=== PATIENT | female | born 1940 | race Native Hawaiian/Other Pacific Islander ===

== ENCOUNTER 2017-11-29 11:36 | Inpatient (IN) | payer MEDICARE ==
[2017-11-29 12:27] VITALS: O2SAT 98
--- NOTE | 2017-11-29 12:50 | ED PDOC ---
HPI: Psych/Substance Abuse Time Seen by Provider: 11/29/17 12:15 Chief Complaint (Nursing): Psychiatric Evaluation Chief Complaint (Provider): Psychiatric Evaluation ED Caveat: Dementia History Per: Patient, Family History/Exam Limitations: clinical condition Onset/Duration Of Symptoms: Gradual (x1 month) Current Symptoms Are (Timing): Still Present Additional Complaint(s): 77 year old female with medical history of dementia, presents to the emergency department with family for a psychiatric evaluation after patient has been experiencing visual hallucinations for 1 month. Daughter (POA) reports that patient is also experiencing difficulty sleeping, worsening memory loss and confusion. Per patient, she denies any complaints and states that she is "feeling good and happy". Family denies any fever, chills, nausea, vomiting, diarrhea, chest pain, bodily injuries, falls, suicidal or homicidal ideation. PMD: none provided Past Medical History Reviewed: Historical Data, Nursing Documentation, Vital Signs Vital Signs: Last Vital Signs Temp 98.3 F 11/29/17 12:24 Pulse 86 11/29/17 12:24 Resp 20 11/29/17 12:24 BP 162/74 H 11/29/17 12:24 Pulse Ox 98 11/29/17 12:24 - Medical History PMH: Dementia - Surgical History Other surgeries: hysterectomy - Family History Family History: States: Unknown Family Hx - Social History Current smoker - smoking cessation education provided: No Ex-Smoker (has not smoked in the last 12 months): No Alcohol: None Drugs: Denies - Home Medications Home Medications: Ambulatory Orders Medication Instructions Recorded Alprazolam [Xanax] 0.25 mg PO DAILY PRN 11/29/17 Amlodipine Besylate/Benazepril 1 cap PO DAILY 11/29/17 [Lotrel 5-10 mg Capsule] Calcium Carbonate [Caltrate] 1 tab PO DAILY 11/29/17 Cholecalciferol (Vitamin D3) 1 tab PO DAILY 11/29/17 [Vitamin D-400] Donepezil HCl [Aricept] 5 mg PO DAILY 11/29/17 Folic Acid/Multivit-Min/Lutein 1 tab PO DAILY 11/29/17 [Multi-Vitamin Gummies] Memantine [Namenda] 5 mg PO Q12 11/29/17 Nitrofurantoin Macrocrystals 100 mg PO Q12 11/29/17 [Macrobid] Simvastatin [Zocor] 20 mg PO DAILY 11/29/17 metFORMIN [glucOPHAGE] 500 mg PO DAILY 11/29/17 - Allergies Allergies/Adverse Reactions: Allergies Allergy/AdvReac Type Severity Reaction Status Date / Time apple Allergy ITCHING Verified 11/29/17 21:44 peach Allergy ITCHING Verified 11/29/17 21:44 nut - unspecified AdvReac Mild PAIN Verified 11/29/17 21:44 Review of Systems ROS Statement: Except As Marked, All Systems Reviewed And Found Negative Constitutional: Negative for: Fever, Chills Cardiovascular: Negative for: Chest Pain Gastrointestinal: Negative for: Nausea, Vomiting, Diarrhea Musculoskeletal: Negative for: Other (injuries) Psych: Positive for: Other (visual hallucinations). Negative for: Suicidal ideation (or homicidal ideation) Physical Exam - Reviewed Nursing Documentation Reviewed: Yes Vital Signs Reviewed: Yes - Physical Exam Appears: Positive for: Non-toxic, No Acute Distress Head Exam: Positive for: ATRAUMATIC, NORMAL INSPECTION, NORMOCEPHALIC Skin: Positive for: Normal Color Eye Exam: Positive for: Normal appearance ENT: Positive for: Normal ENT Inspection Neck: Positive for: Normal Cardiovascular/Chest: Positive for: Regular Rate, Rhythm Respiratory: Positive for: Normal Breath Sounds. Negative for: Respiratory Distress Gastrointestinal/Abdominal: Positive for: Normal Exam, Soft. Negative for: Tenderness Extremity: Positive for: Normal ROM (upper/lower) Neurologic/Psych: Positive for: Alert, Oriented. Negative for: Motor/Sensory Deficits - Laboratory Results Result Diagrams: 11/29/17 13:10 11/29/17 13:10 Urine dip results: Negative for: Leukocyte Esterase, Nitrate - ECG ECG: Positive for: Interpreted By Me, Viewed By Me ECG Rhythm: Positive for: Normal QRS, Normal ST Segment, Sinus Rhythm, Nonspecific Changes Rate: 76 O2 Sat by Pulse Oximetry: 98 (RA) Pulse Ox Interpretation: Normal - Radiology X-Ray: Interpreted by Me, Viewed By Me X-Ray Interpretation: No Acute Disease Medical Decision Making Medical Decision Making: Initial Impression: Psychiatric evaluation Initial Plan: * CT head without contrast * EKG * Alcohol serum * Drug screen, urine * Urine dipstick * CBC Time: 1407 --CT head FINDINGS: HEMORRHAGE: No intracranial hemorrhage. BRAIN: No mass effect or edema. Mild atrophy. Mild chronic microvascular ischemic changes. VENTRICLES: Mildly prominent. No hydrocephalus. CALVARIUM: Unremarkable. PARANASAL SINUSES: Unremarkable as visualized. No significant inflammatory changes. MASTOID AIR CELLS: Unremarkable as visualized. No inflammatory changes. OTHER FINDINGS: None. IMPRESSION: No acute intracranial pathology. Time: 1544 --Patient evaluated by crisis. --Will be admitted to [facility] for dementia by Dr. Mejias. --Patient is medically stable for psychiatric admission. Scribe Attestation: Documented by Kate Edouard, acting as a scribe for Wilmer Orozco MD. Provider Scribe Attestation: All medical record entries made by the Scribe were at my direction and personally dictated by me. I have reviewed the chart and agree that the record accurately reflects my personal performance of the history, physical exam, medical decision making, and the department course for this patient. I have also personally directed, reviewed, and agree with the discharge instructions and disposition. Disposition - Clinical Impression Clinical Impression: Dementia - Patient ED Disposition Is Patient to be Admitted: Yes Doctor Will See Patient In The: Hospital Counseled Patient/Family Regarding: Studies Performed, Diagnosis - Disposition Disposition Time: 16:50 Condition: STABLE - Pt Status Changed To: Hospital Disposition Of: Inpatient - Admit Certification Admit to Inpatient:: After my assessment, the patient will require hospitalization for at least two midnights. This is because of the severity of symptoms shown, intensity of services needed, and/or the medical risk in this patient being treated as an outpatient. - POA Present On Arrival: None
[2017-11-29 13:26] LABS: BASO # 0.1 K/uL (0.0-0.2); EOS # 0.2 K/uL (0.0-0.7); EOS % 2.6 % (0.0-4.0); LYMPH # 2.1 K/uL (1.0-4.3); LYMPH % 32.4 % (20.0-40.0); MEAN CELL VOLUME 87.9 fl (81.0-99.0); MEAN CORPUSCULAR HGB CONC 31.9 g/dL (33.0-37.0); MEAN PLATELET VOLUME 7.9 fl (7.2-11.7); MONO # 0.5 K/uL (0.0-0.8); MONO % 7.3 % (0.0-10.0); NEUT # 3.7 K/uL (1.8-7.0); NEUT % 56.7 % (50.0-75.0); NRBC % 0.3 % (0.0-0.0); RBC 4.29 Mil/uL (3.80-5.20); RED CELL DISTRIBUTION WIDTH 14.2 % (11.5-14.5); WHITE BLOOD COUNT 6.6 K/uL (4.8-10.8)
[2017-11-29 13:32] LABS: BLOOD UREA NITROGEN 25 mg/dl (7-17); CALCIUM 9.2 mg/dL (8.4-10.2); GFR AFRICAN-AMERICAN > 60; GFR NON-AFRICAN AMERICAN > 60
--- NOTE | 2017-11-29 14:09 | CT ---
PROCEDURE: CT HEAD WITHOUT CONTRAST. HISTORY: AMS COMPARISON: None available. TECHNIQUE: Axial computed tomography images were obtained through the head/brain without intravenous contrast. Radiation dose: Total exam DLP = 694.8 mGy-cm. This CT exam was performed using one or more of the following dose reduction techniques: Automated exposure control, adjustment of the mA and/or kV according to patient size, and/or use of iterative reconstruction technique. FINDINGS: HEMORRHAGE: No intracranial hemorrhage. BRAIN: No mass effect or edema. Mild atrophy. Mild chronic microvascular ischemic changes. VENTRICLES: Mildly prominent. No hydrocephalus. CALVARIUM: Unremarkable. PARANASAL SINUSES: Unremarkable as visualized. No significant inflammatory changes. MASTOID AIR CELLS: Unremarkable as visualized. No inflammatory changes. OTHER FINDINGS: None. IMPRESSION: No acute intracranial pathology.
[2017-11-29 14:31] LABS: BARBITURATES, UR NEGATIVE (NEGATIVE); BENZODIAZEPINES, UR NEGATIVE (NEGATIVE); OPIATES, UR NEGATIVE (NEGATIVE); PHENCYCLIDINE, UR NEGATIVE (NEGATIVE)
--- NOTE | 2017-11-29 17:01 | RAD ---
HISTORY: medical clearance COMPARISON: No prior. FINDINGS: LUNGS: No active pulmonary disease. PLEURA: No significant pleural effusion identified, no pneumothorax apparent. CARDIOVASCULAR: No radiographic findings to suggest acute or significant cardiovascular disease. OSSEOUS STRUCTURES: No significant abnormalities. VISUALIZED UPPER ABDOMEN: Normal. OTHER FINDINGS: None. IMPRESSION: No active disease.
[2017-11-29] MEDS ORDERED: Magnesium Hydroxide Susp 30 ml UD PO PRN (18:46)
[2017-11-29] MEDS ORDERED: Alum-Mag Hydrox-Simethicone Susp (30 mL) PO PRN (18:46)
[2017-11-29] MEDS ORDERED: Insulin Lispro (humaLOG) 100 Units/ml Inj SC SCH (23:00)
[2017-11-29 23:13] LABS: SQUAMOUS EPITHIAL < 1 /hpf (0-5); URINE BACTERIA OCC (<OCC); URINE BILIRUBIN NEGATIVE (NEGATIVE); URINE BLOOD NEGATIVE (NEGATIVE); URINE CLARITY CLOUDY (Clear); URINE COLOR YELLOW (YELLOW); URINE GLUCOSE (UA) NEG (Normal); URINE LEUKOCYTE ESTERASE LARGE Leu/uL (Negative); URINE PROTEIN NEGATIVE (NEGATIVE); URINE UROBILINOGEN 0.2-1.0 mg/dL (0.2-1.0)
--- NOTE | 2017-11-29 23:37 | CP.PCM.PN ---
Subjective - Date & Time of Evaluation Date of Evaluation: 11/29/17 Time of Evaluation: 23:37 - Subjective Subjective: Urinalysis : +ve Nitrites moderate leukocyte esterase #. UTI - Urine c&s - Heydi Monson MD Objective - Vital Signs/Intake and Output Vital Signs (last 24 hours): Temp Pulse Resp BP Pulse Ox 98.6 F 78 18 170/80 H 98 11/29/17 19:28 11/29/17 19:28 11/29/17 18:45 11/29/17 19:28 11/29/17 17:59 - Medications Medications: Current Medications Acetaminophen (Tylenol 325mg Tab) 650 mg PO Q4 PRN PRN Reason: Pain, moderate (4-7) Al Hydrox/Mg Hydrox/Simethicone (Maalox Plus 30 Ml) 30 ml PO Q4 PRN PRN Reason: Dyspepsia Amlodipine Besylate (Norvasc) 10 mg PO DAILY [facility] Atorvastatin Calcium (Lipitor) 10 mg PO HS [facility] Calcium Carbonate (Oscal) 500 mg PO DAILY [facility] Donepezil HCl (Aricept) 5 mg PO DAILY [facility] Insulin Human Lispro (Humalog) 0 units SC ACCU-CHECK [facility] PRN Reason: Protocol Lorazepam (Ativan) 0.5 mg PO Q6 PRN PRN Reason: Anixety/Agitation Stop: 12/13/17 18:47 Lorazepam (Ativan) 0.5 mg PO HS PRN PRN Reason: Insomnia Last Admin: 11/29/17 22:39 Dose: 0.5 mg Magnesium Hydroxide (Milk Of Magnesia) 30 ml PO HS PRN PRN Reason: Constipation Memantine (Namenda) 5 mg PO Q12 [facility] Metformin HCl (Glucophage) 500 mg PO DAILY [facility] Multivitamins/Minerals (Therapeutic-M Tab) 1 tab PO DAILY [facility] Pneumococcal Polyvalent Vaccine (Pneumovax 23 Vaccine) 0.5 ml IM .ONCE ONE Stop: 11/30/17 10:01 Vitamin D (Vitamin D 400 Intl Units Tab) 400 intlu PO DAILY [facility] - Labs Labs: 11/29/17 13:10 11/29/17 13:10
--- NOTE | 2017-11-30 04:01 | PCM.BM ---
<Suzanne Zuniga - Last Filed: 11/30/17 03:59> Treatment Plan Problems - Problems identified on initial assessmt delusions Date Initiated: 11/29/17 Time Initiated: 21:00 Assessment reference: NA Status: Active altered sleep patterns Date Initiated: 11/29/17 Time Initiated: 21:00 Assessment reference: NA Status: Active Treatment assets and liabiliti Patient Assests: cooperative, ADL independent, good support system, negotiates basic needs Patient Liabilities: live alone, medical problems, imparied memory - Milieu Protocol Maintain good personal hygiene: daily Encourage regular showers, daily Remind patient to perform daily oral care, daily Assist patient to perform ADL's Conduct patient checks and document Observation sheet: Q15 minutes Maintain personal safety: every shift Educate patient to report safety concerns to staff, every shift Monitor environment for contraband/sharps Medication safety: Monitor for expected outcome, potential side effects: every shift, Assess barriers to learning: every shift, Assess readiness for medication education: every shift <Yolande Mejias - Last Filed: 11/30/17 14:10> - Diagnosis (1) Dementia with behavioral disturbance Status: Acute Interventions: Medication management, Individual and group therapy, Psychoeducation 11/30/17 11:11 (2) Unspecified psychosis Status: Acute Interventions: Medication management, Individual and group therapy, Psychoeducation 11/30/17 14:10 <Alina Blue - Last Filed: 12/02/17 08:30> Family Contact Family contact: Patient agrees to contact, Family has been contacted by patient , Telephone contact initiated by staff, Family contacted unit to give information Family contact name: Shani Clement - sister Family contacted how many times per week?: 2 Family contact comment: [phone] - Goals for Treatment Patient goals for treatment: Pt to be encouraged to attend activity and clinical groups 3-5x per week to decrease symptoms of paranoia, delusions and employ reality testing. Pt to be encouraged to participate in group milieu to develop coping skills to reduce psychiatric hospitalizations and further decompensation. Coordinate discharge resources needs by providing referral for psychiatric treatment follow up in the community. Discharge/Continuing Care - Education Needs Education Needs: Family Medication, Family Diagnosis/Disease Process, Family Placement options, Family Community resources, Family Activities of Daily Living , Family Personal Hygiene/Grooming, Family Aftercare Safety Plan - Discharge Discharge Criteria: Tolerates medication w/o severe side effects, Free of paranoid thoughts, Normal sleep pattern, Reduction of target symptoms Discharge to:: [facility] - Additional Comments 12/02/17 08:26 Pt seen in team meeting on 11/30/2017. Reason for admission reviewed and discussed. Pt reported being in the hospital due to "high blood pressure." Pt reported "memory some problems." Pt reported she lives with her mother and brother. Pt reported that her brother is going tot he be the president of the [employer] next year. Pt is alert and oriented to person only. Pt is disoriented and confused. Pt's medical and social issues reviewed. Pt's medications reviewed. Tx plan reviewed. SW to continue to follow case. - Treatment Team Participation Discussed with Family/SO: Yes (Via telephone) Was Patient/Family/SO present at Treatment Team Meeting: Yes
[2017-11-30 06:40] LABS: T4 7.24 ug/dl (5.5-11.0)
[2017-11-30 06:57] LABS: FERRITIN 90.5 ng/Ml (11.1-264.0)
[2017-11-30] MEDS: Cholecalciferol 400 Intl Units Tab PO SCH (08:35)
[2017-11-30] MEDS: Multivitamin With Minerals Tab PO SCH (08:36)
[2017-11-30] MEDS: Insulin Lispro (humaLOG) 100 Units/ml Inj SC SCH ×4 (08:39→21:20)
[2017-11-30] MEDS ORDERED: Pneumococcal 23-Valent Vaccine IM ONE (10:00)
--- NOTE | 2017-11-30 11:14 | PCM.PSYCH ---
Initial Psychiatric Evaluation - Initial Psychiatric Evaluation Type of Admission: Voluntary Legal Status: DPOA Chief Complaint (in patient's own words): "I'm okay." Patient's Reaction to Hospitalization: HPI: 77 yo female w/ h/o dementia BIB sister for worsening dementia, wandering around (recently was found by friends waiting at the bus stop w/ 3 purses), standing in front of a mirror for hours talking to herself, having full conversations with people that are or not present in the room (possible AH vs VH), paranoia that her brother in law is stealing her belongings despite no one in the family having keys to her home and hoarding objects. Patient denies acute psychiatric complaints, denies depression/anxiety/SI/HI/AH/VH, but does believe that she lives w/ her mother who is no longer alive and believes she works giving out [employer]. Oriented x self and 2018 PPHx: Alzheimer's Dementia on Aricept and Namenda SHx: No homemaker, denies drugs/etoh/cig. Lives alone. Current Medications: Active Medications Generic Name Dose Route Start Last Admin Trade Name Freq PRN Reason Stop Dose Admin Acetaminophen 650 mg 11/29/17 18:46 Tylenol 325mg Tab PO Q4 PRN Pain, moderate (4-7) Al Hydrox/Mg Hydrox/Simethicone 30 ml 11/29/17 18:46 Maalox Plus 30 Ml PO Q4 PRN Dyspepsia Amlodipine Besylate 10 mg 11/30/17 09:00 11/30/17 08:36 Norvasc PO 10 mg DAILY [facility] Administration Atorvastatin Calcium 10 mg 11/30/17 22:00 Lipitor PO HS [facility] Calcium Carbonate 500 mg 11/30/17 09:00 11/30/17 08:34 Oscal PO 500 mg DAILY [facility] Administration Ciprofloxacin 500 mg 11/29/17 23:45 11/30/17 08:35 Cipro PO 500 mg Q12 [facility] Administration Protocol Donepezil HCl 10 mg 12/01/17 22:00 Aricept PO HS [facility] Insulin Human Lispro 0 units 11/29/17 23:00 11/30/17 08:39 Humalog SC 1 u ACCU-CHECK [facility] Administration Protocol Lorazepam 0.5 mg 11/29/17 18:46 Ativan PO 12/13/17 18:47 Q6 PRN Anixety/Agitation Lorazepam 0.5 mg 11/29/17 22:20 11/29/17 22:39 Ativan PO 0.5 mg HS PRN Administration Insomnia Magnesium Hydroxide 30 ml 11/29/17 18:46 Milk Of Magnesia PO HS PRN Constipation Memantine 5 mg 11/29/17 21:00 11/30/17 08:35 Namenda PO 5 mg Q12 [facility] Administration Metformin HCl 500 mg 11/30/17 09:00 11/30/17 08:35 Glucophage PO 500 mg DAILY [facility] Administration Multivitamins/Minerals 1 tab 11/30/17 09:00 11/30/17 08:36 Therapeutic-M Tab PO 1 tab DAILY [facility] Administration Vitamin D 400 intlu 11/30/17 09:00 11/30/17 08:35 Vitamin D 400 Intl Units Tab PO 400 intlu DAILY [facility] Administration Past Psychiatric History - Past Psychiatric History Previous Treatment History: None Pertinent Medical Hx (Current Medical&Sleep Prob, Allergies): Allergies Allergy/AdvReac Type Severity Reaction Status Date / Time apple Allergy ITCHING Verified 11/29/17 21:44 peach Allergy ITCHING Verified 11/29/17 21:44 nut - unspecified AdvReac Mild PAIN Verified 11/29/17 21:44 Alprazolam [Xanax] 0.25 mg PO DAILY PRN 11/29/17 Amlodipine Besylate/Benazepril [Lotrel 5-10 mg Capsule] 1 cap PO DAILY 11/29/17 Calcium Carbonate [Caltrate] 1 tab PO DAILY 11/29/17 Cholecalciferol (Vitamin D3) [Vitamin D-400] 1 tab PO DAILY 11/29/17 Donepezil HCl [Aricept] 5 mg PO DAILY 11/29/17 Folic Acid/Multivit-Min/Lutein [Multi-Vitamin Gummies] 1 tab PO DAILY 11/29/17 Memantine [Namenda] 5 mg PO Q12 11/29/17 Nitrofurantoin Macrocrystals [Macrobid] 100 mg PO Q12 11/29/17 Simvastatin [Zocor] 20 mg PO DAILY 11/29/17 metFORMIN [glucOPHAGE] 500 mg PO DAILY 11/29/17 Review of Systems - Neurological Neurological: Memory Loss - Psychiatric Psychiatric: Abnormal Sleep Pattern, Difficulty Concentrating, Hallucinations, Irritability, Memory Loss, Mood Swings, Paranoia Mental Status Examination - Personal Presentation Personal Presentation: Looks stated age - Affect Affect: Broad - Motor Activity Motor Activity: Calm - Reliability in Providing Information Reliability in Providing Information: Poor, due to cognitve impairment - Speech Speech: Tangential, Coherent - Mood Mood: Neutral - Formal Thought Process Formal Thought Process: Delusions, Paranoia, Loosening of associations - Hallucinations/Delusions Additional comments: Patient denies AH/VH, but it unclear if she responds to internal stimuli - Obsessions/Compulsions Obsessions: No Compulsions: No - Cognitive Functions Orientation: Person Sensorium: Alert Attention/Concentration: Easily distracted Estimate of Intelligence: Average Judgement: Imparied, as evidence by: Poor judgement, Imparied, as evidence by: Lack of insight into illness Memory: Recent impaired, as evidence by: Inability to recall events of the day, Recent imparied as evidence by:Inability to complete 3/3 object recall, Remote impaired as evidenced by: Inability to recall sig life events, Remote impaired as evidenced by: Inability to recall historical events - Risk Risk: Diminished functioning - Strength & Assets Inventory Strength & Assets Inventory: Family support, Cooperative - Limitations Limitations: Living alone, Decreased memory, recent DSM 5 DX - DSM 5 DSM 5 Diagnosis: Dementia with behavioral disturbance, Psychosis NOS - Recommended/Plan of Treatment Treatment Recommendations and Plan of Treatment: Dementia with behavioral disturbance, Psychosis NOS -Admit to geriatric psychiatry unit -Individual and group therapy -Continue Aricept and Namenda -Start Risperdal 0.25 mg PO HS -Case discussed w/ POA -Medicine consult -Disposition planning Projected ELOS: 5-10 days Discharge Plan and Discharge Criteria: Discharge when patient is psychiatrically stable - Smoking Cessation Smoking Cessation Initiated: No Reason for not providing: Not indicated
--- NOTE | 2017-11-30 12:28 | CARD ---
APPROVED REPORT EKG Measurement Heart [id number] [id number] [id number] <Conclusion> Normal sinus rhythm Inferior infarct, age undetermined Cannot rule out Anterior infarct, age undetermined Abnormal ECG
[2017-11-30 17:26] LABS: FOLATE 15.1 ng/mL
--- NOTE | 2017-11-30 17:46 | CP.PCM.CON ---
History of Present Illness - History of Present Illness History of Present Illness: CC: dementia This is a 77 year old female with a past medical history of dementia, hypercholesterolemia, type 2 DM (on Metformin at home), who presented to the ED with worsening visual hallucination, memory loss, and confusion for one month. She was subsequently admitted to the inpatient [facility] for dementia. Patient to me denies any past medical history, although she is a poor historian. She states that she feels well and has no complaints. Was dx with UTI yesterday by the overnight hospitalist. Patient denies chest pain, shortness of breath, fevers, chills, nausea, vomiting, diarrhea, headache. All of the patient's questions were answered at the bedside. Review of Systems - Review of Systems Review of Systems: A 12 point review of systems was conducted and found to be negative other than what was mentioned in the HPI. Past Patient History - Infectious Disease Hx of Infectious Diseases: None - Past Medical History & Family History Past Medical History?: Yes Past Family History: Reviewed and not pertinent - Past Social History Smoking Status: Never Smoked Alcohol: None Drugs: Denies - CARDIAC Hx Cardiac Disorders: No - PULMONARY Hx Tuberculosis: No - NEUROLOGICAL Hx Dementia: Yes - ENDOCRINE/METABOLIC Hx Diabetes Mellitus Type 2: Yes - HEMATOLOGICAL/ONCOLOGICAL Hx Cancer: No Hx Human Immunodeficiency Virus (HIV): No - MUSCULOSKELETAL/RHEUMATOLOGICAL Hx Falls: No - GENITOURINARY/GYNECOLOGICAL Hx Sexually Transmitted Disorders: No - PSYCHIATRIC Hx Substance Use: No - SURGICAL HISTORY Hx Cholecystectomy: Yes Hx Hysterectomy: Yes - ANESTHESIA Hx Anesthesia: Yes Hx Anesthesia Reactions: No Hx Malignant Hyperthermia: No Meds Allergies/Adverse Reactions: Allergies Allergy/AdvReac Type Severity Reaction Status Date / Time apple Allergy ITCHING Verified 11/29/17 21:44 peach Allergy ITCHING Verified 11/29/17 21:44 nut - unspecified AdvReac Mild PAIN Verified 11/29/17 21:44 - Medications Medications: Current Medications Acetaminophen (Tylenol 325mg Tab) 650 mg PO Q4 PRN PRN Reason: Pain, moderate (4-7) Al Hydrox/Mg Hydrox/Simethicone (Maalox Plus 30 Ml) 30 ml PO Q4 PRN PRN Reason: Dyspepsia Amlodipine Besylate (Norvasc) 10 mg PO DAILY [facility] Last Admin: 11/30/17 08:36 Dose: 10 mg Atorvastatin Calcium (Lipitor) 10 mg PO HS [facility] Calcium Carbonate (Oscal) 500 mg PO DAILY [facility] Last Admin: 11/30/17 08:34 Dose: 500 mg Ciprofloxacin (Cipro) 500 mg PO Q12 [facility] PRN Reason: Protocol Last Admin: 11/30/17 08:35 Dose: 500 mg Donepezil HCl (Aricept) 10 mg PO HS [facility] Insulin Human Lispro (Humalog) 0 units SC ACCU-CHECK [facility] PRN Reason: Protocol Last Admin: 11/30/17 16:54 Dose: Not Given Lorazepam (Ativan) 0.5 mg PO Q6 PRN PRN Reason: Anixety/Agitation Stop: 12/13/17 18:47 Lorazepam (Ativan) 0.5 mg PO HS PRN PRN Reason: Insomnia Last Admin: 11/29/17 22:39 Dose: 0.5 mg Magnesium Hydroxide (Milk Of Magnesia) 30 ml PO HS PRN PRN Reason: Constipation Memantine (Namenda) 5 mg PO Q12 [facility] Last Admin: 11/30/17 08:35 Dose: 5 mg Metformin HCl (Glucophage) 500 mg PO DAILY [facility] Last Admin: 11/30/17 08:35 Dose: 500 mg Multivitamins/Minerals (Therapeutic-M Tab) 1 tab PO DAILY [facility] Last Admin: 11/30/17 08:36 Dose: 1 tab Risperidone (Risperdal Tab) 0.25 mg PO [facility] Vitamin D (Vitamin D 400 Intl Units Tab) 400 intlu PO DAILY [facility] Last Admin: 11/30/17 08:35 Dose: 400 intlu Physical Exam - Additional Findings Additional findings: Physical exam: Constitutional- cooperative, awake, alert Head- NCAT, PERRL Eye- PERRL, EOMI ENT- normal exam, MMM. Neck- normal inspection, supple, no JVD Respiratory- CTAB, no wheezes rales rhonchi Cardiovascular- RRR, +S1, +S2 no MRG GI/Abdominal- normal bowel sounds, soft, no mass, no hsm Skin- warm, dry Extremities Exam- normal capillary refill, normal inspection Neurological Exam- alert, awake, oriented Psych- normal mood, normal affect Results - Vital Signs Recent Vital Signs: Last Vital Signs Temp 97.9 F 11/30/17 15:51 Pulse 85 11/30/17 15:51 Resp 18 11/30/17 15:51 BP 140/86 11/30/17 15:51 Pulse Ox 98 11/29/17 17:59 - Labs Result Diagrams: 11/29/17 13:10 11/29/17 13:10 Labs: Laboratory Results - last 24 hr 11/29/17 11/29/17 11/30/17 20:55 23:01 05:30 POC Glucose (mg/dL) 182 H Ferritin 90.5 Triglycerides 99 Cholesterol 183 LDL Cholesterol Direct 85 HDL Cholesterol 48 Vitamin B12 355 Folate 15.1 Free T4 Thyroxine (T4) 7.24 TSH 3rd Generation 2.54 Urine Color Yellow Urine Clarity Cloudy Urine pH 6.0 Ur Specific Berger 1.014 Urine Protein Negative Urine Glucose (UA) Neg Urine Ketones Negative Urine Blood Negative Urine Nitrate Positive H Urine Bilirubin Negative Urine Urobilinogen 0.2-1.0 Ur Leukocyte Esterase Large Urine RBC (Auto) 19 H Urine Microscopic WBC 227 H Ur Squamous Epith Cells < 1 Urine Bacteria Occ H 11/30/17 11/30/17 11/30/17 05:30 05:39 14:12 POC Glucose (mg/dL) 72 130 H Ferritin Triglycerides Cholesterol LDL Cholesterol Direct HDL Cholesterol Vitamin B12 Folate Free T4 1.02 Thyroxine (T4) TSH 3rd Generation Urine Color Urine Clarity Urine pH Ur Specific Berger Urine Protein Urine Glucose (UA) Urine Ketones Urine Blood Urine Nitrate Urine Bilirubin Urine Urobilinogen Ur Leukocyte Esterase Urine RBC (Auto) Urine Microscopic WBC Ur Squamous Epith Cells Urine Bacteria 11/30/17 15:16 POC Glucose (mg/dL) 113 H Ferritin Triglycerides Cholesterol LDL Cholesterol Direct HDL Cholesterol Vitamin B12 Folate Free T4 Thyroxine (T4) TSH 3rd Generation Urine Color Urine Clarity Urine pH Ur Specific Berger Urine Protein Urine Glucose (UA) Urine Ketones Urine Blood Urine Nitrate Urine Bilirubin Urine Urobilinogen Ur Leukocyte Esterase Urine RBC (Auto) Urine Microscopic WBC Ur Squamous Epith Cells Urine Bacteria Assessment & Plan - Assessment and Plan (Free Text) Plan: ASSESSMENT/PLAN 77 yo female admitted for visual hallucinations 1) UTI - Acute - continue Cipro 500 mg po q 12 hours - Urine CX pending - afebrile, no WBC at present 2) Type 2 DM - Continue Lispro sliding scale - HGA1C pending - Metformin 500 mg po daily 3) Hypercholesterolemia - controlled - continue statin 4) Essential hypertension - Continue Norvasc 10 mg po daily - controlled 5) Dementia, visual hallucinations - Continue Namenda - continue Aricept - Continue Risperidone - Further management as per psychiatry
[2017-12-01] MEDS: Insulin Lispro (humaLOG) 100 Units/ml Inj SC SCH ×4 (08:38→21:00)
[2017-12-01] MEDS: Multivitamin With Minerals Tab PO SCH (08:39)
--- NOTE | 2017-12-01 08:58 | PCM.PYCHPN ---
Psychiatric Progress Note - Psychiatric Progress Note Patient seen today, length of contact: Patient evaluated, case discussed with team, chart reviewed Patient Chief Complaint: "I'm okay." Problems Identified/Issues Discussed: Patient continues to be confused and disoriented due to chronic dementia. She has been observed talking to herself by staff. She denies adverse effects to medications. No periods of agitation or aggression. Medication Change: Yes (Increase Aricept to 10 mg PO HS) Medical Record Reviewed: Yes Consults ordered or reviewed: Medicine consult Mental Status Examination - Cognitive Function Orientation: Person Memory: Impaired Attention: Poor Concentration: Poor Association: Loose Fund of Knowledge: Poor Decription of patient's judgement and insights: Poor I/J - Mood Mood: Neutral - Affect Affect: Broad - Formal Thought Process Formal Thought Process: Hallucinations (Possible AH or VH; patient observed talking to herself by staff; denies overt AH/VH), Paranoia, Loosening of associations - Suicidal Ideation Suicidal Ideation: No - Homicidal Ideation Homicidal Ideation: No Goal/Treatment Plan - Goal/Treatment Plan Need for Continued Stay: Remain at risks for inpatient hospitalization, Discharge may exacerbated symptoms, Severe functional impairment Progress Toward Problem(s) and Goals/Treatment Plan: Dementia with behavioral disturbance, Psychosis NOS -Individual and group therapy -Increase Aricept to 10 mg PO HS -Continue Namenda 5 mg PO BID -Continue Risperdal 0.25 mg PO HS -Case discussed w/ POA -Medicine consult -Disposition planning Estimated Date of D/C: 12/03/17
[2017-12-01] MEDS: Cholecalciferol 400 Intl Units Tab PO SCH (18:26)
[2017-12-02] MEDS: Insulin Lispro (humaLOG) 100 Units/ml Inj SC SCH ×4 (08:27→22:00)
[2017-12-02] MEDS: Multivitamin With Minerals Tab PO SCH (08:28)
[2017-12-02] MEDS: Cholecalciferol 400 Intl Units Tab PO SCH (08:28)
--- NOTE | 2017-12-02 10:00 | PCM.PYCHPN ---
Psychiatric Progress Note - Psychiatric Progress Note Patient seen today, length of contact: Patient evaluated, case discussed with team, chart reviewed Patient Chief Complaint: "I'm okay." Problems Identified/Issues Discussed: Patient continues to be confused and disoriented due to chronic dementia. She is calmer and seems less internally preoccupied. She denies adverse effects to medications. No periods of agitation or aggression. Medication Change: No Medical Record Reviewed: Yes Consults ordered or reviewed: Medicine consult Mental Status Examination - Cognitive Function Orientation: Person Memory: Impaired Attention: Poor Concentration: Poor Association: Loose Fund of Knowledge: Poor Decription of patient's judgement and insights: Poor I/J - Mood Mood: Neutral - Affect Affect: Broad - Formal Thought Process Formal Thought Process: Loosening of associations Psychotic Thoughts and Behaviors: Denies AH/VH/paranoia - Suicidal Ideation Suicidal Ideation: No - Homicidal Ideation Homicidal Ideation: No Goal/Treatment Plan - Goal/Treatment Plan Need for Continued Stay: Discharge may exacerbated symptoms, Severe functional impairment Progress Toward Problem(s) and Goals/Treatment Plan: Dementia with behavioral disturbance, Psychosis NOS -Individual and group therapy -Continue Aricept 10 mg PO HS -Continue Namenda 5 mg PO BID -Continue Risperdal 0.25 mg PO HS -Case discussed w/ POA -Medicine consult -Disposition planning Estimated Date of D/C: 12/06/17
[2017-12-03] MEDS: Insulin Lispro (humaLOG) 100 Units/ml Inj SC SCH ×4 (08:32→22:15)
[2017-12-03] MEDS: Multivitamin With Minerals Tab PO SCH (08:39)
[2017-12-03] MEDS: Cholecalciferol 400 Intl Units Tab PO SCH (08:40)
--- NOTE | 2017-12-03 09:29 | PCM.PYCHPN ---
Psychiatric Progress Note - Psychiatric Progress Note Patient seen today, length of contact: Patient evaluated, case discussed with team, chart reviewed Patient Chief Complaint: "I'm okay." Problems Identified/Issues Discussed: Patient continues to be confused and disoriented due to chronic dementia. She is calm, cooperative, w/o any behavioral disturbances. She is at her baseline of functioning. She denies adverse effects to medications. No periods of agitation or aggression. No acute AH/VH/paranoia. Medication Change: No Medical Record Reviewed: Yes Consults ordered or reviewed: Medicine consult Mental Status Examination - Cognitive Function Orientation: Person Memory: Impaired Attention: Poor Concentration: Poor Association: Loose Fund of Knowledge: Poor Decription of patient's judgement and insights: Poor I/J - Mood Mood: Neutral - Affect Affect: Broad - Formal Thought Process Formal Thought Process: Loosening of associations Psychotic Thoughts and Behaviors: Denies AH/VH/paranoia - Suicidal Ideation Suicidal Ideation: No - Homicidal Ideation Homicidal Ideation: No Goal/Treatment Plan - Goal/Treatment Plan Progress Toward Problem(s) and Goals/Treatment Plan: Dementia with behavioral disturbance, Psychosis NOS; patient is psychiatrically stable for referral to assisted living -Individual and group therapy -Continue Aricept 10 mg PO HS -Continue Namenda 5 mg PO BID -Continue Risperdal 0.25 mg PO HS -Case discussed w/ POA -Medicine consult -Disposition planning Estimated Date of D/C: 12/06/17 - Smoking Cessation Smoking Cessation Initiated: No Reason for not providing: Not indicated
--- NOTE | 2017-12-03 11:31 | CP.PCM.CON ---
History of Present Illness - History of Present Illness History of Present Illness: Pt is a 77 year old female admitted to the gerospych unit and referred to the board writer for evaluation. On the DRS, pt scored an overalls score of 103 (125+ = intact cognitive skills). Pt scored within normal limits on Attent ion tasks. Pt's Initiation, Construction, Memory, and Conceptualization skills all fell in the Deficient Range. Pt acknowledged memory deficits on interview though was defensive on interview with confabulation also evident. Overal 103 Attention 32 Construction 3 Conceptualization 29 Initiation 26 Memory 13 Supervision indicated for more complex tasks and monitoring to determine needs. A day program would be helpful at this time and homemaker services Thank you for this referral, Dr. Granados Past Patient History - Infectious Disease Hx of Infectious Diseases: None - Past Medical History & Family History Past Medical History?: Yes Past Family History: Reviewed and not pertinent - Past Social History Alcohol: None Drugs: Denies - CARDIAC Hx Cardiac Disorders: No - PULMONARY Hx Tuberculosis: No - NEUROLOGICAL Hx Dementia: Yes - ENDOCRINE/METABOLIC Hx Diabetes Mellitus Type 2: Yes - HEMATOLOGICAL/ONCOLOGICAL Hx Cancer: No Hx Human Immunodeficiency Virus (HIV): No - MUSCULOSKELETAL/RHEUMATOLOGICAL Hx Falls: No - GENITOURINARY/GYNECOLOGICAL Hx Sexually Transmitted Disorders: No - PSYCHIATRIC Hx Substance Use: No - SURGICAL HISTORY Hx Cholecystectomy: Yes Hx Hysterectomy: Yes - ANESTHESIA Hx Anesthesia: Yes Hx Anesthesia Reactions: No Hx Malignant Hyperthermia: No Meds Allergies/Adverse Reactions: Allergies Allergy/AdvReac Type Severity Reaction Status Date / Time apple Allergy ITCHING Verified 11/29/17 21:44 peach Allergy ITCHING Verified 11/29/17 21:44 nut - unspecified AdvReac Mild PAIN Verified 11/29/17 21:44 - Medications Medications: Current Medications Acetaminophen (Tylenol 325mg Tab) 650 mg PO Q4 PRN PRN Reason: Pain, moderate (4-7) Last Admin: 12/02/17 11:16 Dose: 650 mg Al Hydrox/Mg Hydrox/Simethicone (Maalox Plus 30 Ml) 30 ml PO Q4 PRN PRN Reason: Dyspepsia Amlodipine Besylate (Norvasc) 10 mg PO DAILY [facility] Last Admin: 12/03/17 08:37 Dose: 10 mg Atorvastatin Calcium (Lipitor) 10 mg PO HS [facility] Last Admin: 12/02/17 21:04 Dose: 10 mg Calcium Carbonate (Oscal) 500 mg PO DAILY [facility] Last Admin: 12/03/17 08:38 Dose: 500 mg Ciprofloxacin (Cipro) 500 mg PO Q12 [facility] PRN Reason: Protocol Last Admin: 12/03/17 08:36 Dose: 500 mg Donepezil HCl (Aricept) 10 mg PO HS [facility] Last Admin: 12/02/17 21:04 Dose: 10 mg Insulin Human Lispro (Humalog) 0 units SC ACCU-CHECK [facility] PRN Reason: Protocol Last Admin: 12/03/17 08:32 Dose: Not Given Lorazepam (Ativan) 0.5 mg PO Q6 PRN PRN Reason: Anixety/Agitation Stop: 12/13/17 18:47 Lorazepam (Ativan) 0.5 mg PO HS PRN PRN Reason: Insomnia Last Admin: 11/29/17 22:39 Dose: 0.5 mg Magnesium Hydroxide (Milk Of Magnesia) 30 ml PO HS PRN PRN Reason: Constipation Memantine (Namenda) 5 mg PO BID [facility] Last Admin: 12/03/17 08:37 Dose: 5 mg Metformin HCl (Glucophage) 500 mg PO DAILY [facility] Last Admin: 12/03/17 08:37 Dose: 500 mg Multivitamins/Minerals (Therapeutic-M Tab) 1 tab PO DAILY [facility] Last Admin: 12/03/17 08:39 Dose: 1 tab Risperidone (Risperdal Tab) 0.25 mg PO HS [facility] Last Admin: 12/02/17 21:04 Dose: 0.25 mg Vitamin D (Vitamin D 400 Intl Units Tab) 400 intlu PO DAILY [facility] Last Admin: 12/03/17 08:40 Dose: 400 intlu Results - Vital Signs Recent Vital Signs: Last Vital Signs Temp 97 F L 12/03/17 06:00 Pulse 76 12/03/17 08:37 Resp 19 12/03/17 06:00 BP 129/91 H 12/03/17 08:37 Pulse Ox 98 12/01/17 15:13 - Labs Result Diagrams: 11/29/17 13:10 11/29/17 13:10 Labs: Laboratory Results - last 24 hr 12/02/17 12/02/17 12/03/17 15:15 20:11 05:50 POC Glucose (mg/dL) 146 H 172 H 126 H
[2017-12-04] MEDS: Multivitamin With Minerals Tab PO SCH (08:26)
[2017-12-04] MEDS: Cholecalciferol 400 Intl Units Tab PO SCH (08:27)
[2017-12-04] MEDS: Insulin Lispro (humaLOG) 100 Units/ml Inj SC SCH ×4 (08:28→23:50)
--- NOTE | 2017-12-04 14:29 | PCM.PYCHPN ---
Psychiatric Progress Note - Psychiatric Progress Note Patient seen today, length of contact: Patient evaluated, case discussed with team, chart reviewed Patient Chief Complaint: I am fine Problems Identified/Issues Discussed: pt evaluated, cooperative, no reported behavioral disturbances, oriented to person only denied suicidal or homicidal ideations, denied command hallucinations DSM 5 Symptoms Update: dementia Medication Change: No Medical Record Reviewed: Yes Mental Status Examination - Cognitive Function Orientation: Person Memory: Impaired Attention: Poor Concentration: Poor Association: Loose Fund of Knowledge: Poor - Mood Mood: Neutral - Affect Affect: Broad - Formal Thought Process Formal Thought Process: Loosening of associations - Suicidal Ideation Suicidal Ideation: No - Homicidal Ideation Homicidal Ideation: No Goal/Treatment Plan - Goal/Treatment Plan Need for Continued Stay: Discharge may exacerbated symptoms, Severe functional impairment Progress Toward Problem(s) and Goals/Treatment Plan: continue current management Estimated Date of D/C: 12/06/17
[2017-12-05 09:26] LABS: BASO # 0.1 K/uL (0.0-0.2); BASO % 0.5 % (0.0-2.0); EOS % 0.2 % (0.0-4.0); HEMOGLOBIN 11.8 g/dL (12.0-16.0); LYMPH # 1.5 K/uL (1.0-4.3); LYMPH % 14.3 % (20.0-40.0); MEAN CELL VOLUME 86.7 fl (81.0-99.0); MEAN CORPUSCULAR HEMOGLOBIN 28.8 pg (27.0-31.0); MEAN CORPUSCULAR HGB CONC 33.2 g/dL (33.0-37.0); MEAN PLATELET VOLUME 7.7 fl (7.2-11.7); MONO # 0.5 K/uL (0.0-0.8); NEUT # 8.5 K/uL (1.8-7.0); NRBC % 0.1 % (0.0-0.0); RBC 4.09 Mil/uL (3.80-5.20); RED CELL DISTRIBUTION WIDTH 13.8 % (11.5-14.5); WHITE BLOOD COUNT 10.6 K/uL (4.8-10.8)
[2017-12-05] MEDS: Insulin Lispro (humaLOG) 100 Units/ml Inj SC SCH ×4 (10:18→23:42)
[2017-12-05] MEDS: Sodium Chloride 0.9% 1,000 ML IV SCH ×2 (10:33→21:31)
[2017-12-05] MEDS: Multivitamin With Minerals Tab PO SCH (12:40)
[2017-12-05] MEDS: Pantoprazole 40 mg EC Tab PO SCH (12:43)
[2017-12-05] MEDS: Cholecalciferol 400 Intl Units Tab PO SCH (12:43)
--- NOTE | 2017-12-05 13:06 | PCM.PYCHPN ---
Psychiatric Progress Note - Psychiatric Progress Note Patient seen today, length of contact: Patient evaluated, case discussed with team, chart reviewed Patient Chief Complaint: I am tired Problems Identified/Issues Discussed: pt evaluated, cooperative, good eye contact, reported feeling tired, staff reported pt complained of blood in bowel movement, note drop in HGB, pt also presenting with nausea and poor appetite, IV fluids will be started with consultation with hospitalist no reported behavioral disturbances, oriented to person only denied suicidal or homicidal ideations, denied command hallucinations DSM 5 Symptoms Update: major neurocognitive disorder Medication Change: No Medical Record Reviewed: Yes Mental Status Examination - Cognitive Function Orientation: Person Memory: Impaired Attention: WNL Concentration: WNL Association: Loose Fund of Knowledge: Poor Decription of patient's judgement and insights: impaired insight and judgment - Mood Mood: Neutral - Affect Affect: Broad - Speech Speech: Soft - Formal Thought Process Formal Thought Process: Loosening of associations Psychotic Thoughts and Behaviors: non elicited - Suicidal Ideation Suicidal Ideation: No - Homicidal Ideation Homicidal Ideation: No Goal/Treatment Plan - Goal/Treatment Plan Need for Continued Stay: Discharge may exacerbated symptoms, Severe functional impairment Progress Toward Problem(s) and Goals/Treatment Plan: continue current medications follow up with hospitalist consult Estimated Date of D/C: 12/06/17
[2017-12-05 18:56] LABS: SQUAMOUS EPITHIAL 1 /hpf (0-5); URINE BACTERIA RARE (<OCC); URINE BILIRUBIN NEGATIVE (NEGATIVE); URINE BLOOD NEGATIVE (NEGATIVE); URINE CLARITY SLIGHTY-CLOUDY (Clear); URINE COLOR YELLOW (YELLOW); URINE GLUCOSE (UA) NEG (Normal); URINE LEUKOCYTE ESTERASE NEG Leu/uL (Negative); URINE PROTEIN NEGATIVE (NEGATIVE); URINE UROBILINOGEN 0.2-1.0 mg/dL (0.2-1.0)
[2017-12-06] MEDS: Insulin Lispro (humaLOG) 100 Units/ml Inj SC SCH ×3 (09:04→16:11)
[2017-12-06] MEDS: Pantoprazole 40 mg EC Tab PO SCH (09:06)
[2017-12-06] MEDS: Cholecalciferol 400 Intl Units Tab PO SCH (09:07)
[2017-12-06] MEDS: Multivitamin With Minerals Tab PO SCH (09:07)
--- NOTE | 2017-12-06 09:14 | PCM.PYCHPN ---
Psychiatric Progress Note - Psychiatric Progress Note Patient seen today, length of contact: Patient evaluated, case discussed with team, chart reviewed Patient Chief Complaint: "I'm okay." Problems Identified/Issues Discussed: No significant events over the weekend. Patient continues to be confused and disoriented due to chronic dementia. She is calm, cooperative, w/o any behavioral disturbances. She is at her baseline of functioning. She denies adverse effects to medications. No periods of agitation or aggression. No acute AH/VH/paranoia. Medication Change: No Medical Record Reviewed: Yes Consults ordered or reviewed: Medicine consult Mental Status Examination - Cognitive Function Orientation: Person Memory: Impaired Attention: WNL Concentration: WNL Association: Loose Fund of Knowledge: Poor Decription of patient's judgement and insights: Chronic poor I/J due to dementia - Mood Mood: Neutral - Affect Affect: Broad - Speech Speech: Soft - Formal Thought Process Formal Thought Process: Loosening of associations Psychotic Thoughts and Behaviors: Denies AH/VH/paranoia - Suicidal Ideation Suicidal Ideation: No - Homicidal Ideation Homicidal Ideation: No Goal/Treatment Plan - Goal/Treatment Plan Progress Toward Problem(s) and Goals/Treatment Plan: Dementia with behavioral disturbance, Psychosis NOS; patient is psychiatrically stable for referral to assisted living -Individual and group therapy -Continue Aricept 10 mg PO HS -Continue Namenda 5 mg PO BID -Continue Risperdal 0.25 mg PO HS -Case discussed w/ POA -Medicine consult -Disposition planning Estimated Date of D/C: 12/07/17
--- NOTE | 2017-12-07 08:22 | PCM.PYCHPN ---
Psychiatric Progress Note - Psychiatric Progress Note Patient seen today, length of contact: Patient evaluated, case discussed with team, chart reviewed Patient Chief Complaint: "I'm okay." Problems Identified/Issues Discussed: No significant events. Patient continues to be confused and disoriented due to chronic dementia. She is calm, cooperative, w/o any behavioral disturbances. She is at her baseline of functioning. She denies adverse effects to medications. No periods of agitation or aggression. No acute AH/VH/paranoia. Medication Change: No Medical Record Reviewed: Yes Consults ordered or reviewed: Medicine consult Mental Status Examination - Cognitive Function Orientation: Person Memory: Impaired Attention: WNL Concentration: WNL Association: Loose Fund of Knowledge: Poor Decription of patient's judgement and insights: Chronic poor I/J due to dementia - Mood Mood: Neutral - Affect Affect: Broad - Speech Speech: Soft - Formal Thought Process Formal Thought Process: Loosening of associations Psychotic Thoughts and Behaviors: Denies AH/VH/paranoia - Suicidal Ideation Suicidal Ideation: No - Homicidal Ideation Homicidal Ideation: No Goal/Treatment Plan - Goal/Treatment Plan Need for Continued Stay: Severe functional impairment Progress Toward Problem(s) and Goals/Treatment Plan: Dementia with behavioral disturbance, Psychosis NOS; patient is psychiatrically stable for referral to assisted living -Individual and group therapy -Continue Aricept 10 mg PO HS -Continue Namenda 5 mg PO BID -Continue Risperdal 0.25 mg PO HS -Case discussed w/ POA -Medicine consult -Disposition planning Estimated Date of D/C: 12/08/17
[2017-12-07] MEDS: Multivitamin With Minerals Tab PO SCH (09:21)
[2017-12-07] MEDS: Insulin Lispro (humaLOG) 100 Units/ml Inj SC SCH ×4 (09:21→22:15)
[2017-12-07] MEDS: Cholecalciferol 400 Intl Units Tab PO SCH (09:22)
[2017-12-07] MEDS: Pantoprazole 40 mg EC Tab PO SCH (09:22)
[2017-12-08] MEDS: Multivitamin With Minerals Tab PO SCH (08:30)
[2017-12-08] MEDS: Pantoprazole 40 mg EC Tab PO SCH (08:31)
[2017-12-08] MEDS: Cholecalciferol 400 Intl Units Tab PO SCH (08:31)
--- NOTE | 2017-12-08 08:51 | PCM.PYCHPN ---
Psychiatric Progress Note - Psychiatric Progress Note Patient seen today, length of contact: Patient evaluated, case discussed with team, chart reviewed Patient Chief Complaint: "I'm okay." Problems Identified/Issues Discussed: No significant events. Patient continues to be confused and disoriented due to chronic dementia. She is calm, cooperative, w/o any behavioral disturbances. She is at her baseline of functioning. She denies adverse effects to medications. No periods of agitation or aggression. No acute AH/VH/paranoia. She is pending assisted living placement. Medication Change: No Medical Record Reviewed: Yes Consults ordered or reviewed: Medicine consult Mental Status Examination - Cognitive Function Orientation: Person Memory: Impaired Attention: WNL Concentration: WNL Association: Loose Fund of Knowledge: Poor Decription of patient's judgement and insights: Chronic poor I/J due to dementia - Mood Mood: Neutral - Affect Affect: Broad - Speech Speech: Soft - Formal Thought Process Formal Thought Process: Loosening of associations Psychotic Thoughts and Behaviors: Denies AH/VH/paranoia - Suicidal Ideation Suicidal Ideation: No - Homicidal Ideation Homicidal Ideation: No Goal/Treatment Plan - Goal/Treatment Plan Need for Continued Stay: Severe functional impairment Progress Toward Problem(s) and Goals/Treatment Plan: Dementia with behavioral disturbance, Psychosis NOS; pending placement in assisted living facility -Individual and group therapy -Continue Aricept 10 mg PO HS -Continue Namenda 5 mg PO BID -Continue Risperdal 0.25 mg PO HS -Case discussed w/ POA -Medicine consult -Disposition planning Estimated Date of D/C: 12/13/17
[2017-12-08] MEDS: Insulin Lispro (humaLOG) 100 Units/ml Inj SC SCH ×4 (10:25→22:19)
--- NOTE | 2017-12-08 12:44 | PCM.BM ---
Treatment Plan Problems - Problems identified on initial assessmt delusions Date Initiated: 11/29/17 Time Initiated: 21:00 Assessment reference: NA Status: Active altered sleep patterns Date Initiated: 11/29/17 Time Initiated: 21:00 Assessment reference: NA Status: Active Treatment assets and liabiliti Patient Assests: cooperative, ADL independent, good support system, negotiates basic needs Patient Liabilities: live alone, medical problems, imparied memory - Milieu Protocol Maintain good personal hygiene: daily Encourage regular showers, daily Remind patient to perform daily oral care, daily Assist patient to perform ADL's Conduct patient checks and document Observation sheet: Q15 minutes Maintain personal safety: every shift Educate patient to report safety concerns to staff, every shift Monitor environment for contraband/sharps Medication safety: Monitor for expected outcome, potential side effects: every shift, Assess barriers to learning: every shift, Assess readiness for medication education: every shift Milieu Narrative: Dementia with behavioral disturbance, Psychosis NOS; pending placement in assisted living facility -Individual and group therapy -Continue Aricept 10 mg PO HS -Continue Namenda 5 mg PO BID -Continue Risperdal 0.25 mg PO HS -Case discussed w/ POA -Medicine consult -Disposition planning Family Contact Family involvement: Family/SO is involved Family contact: Patient agrees to contact, Family has been contacted by patient , Telephone contact initiated by staff, Family contacted unit to give information Family contact name: Shani - sister Family contacted how many times per week?: 2 Family contact comment: [phone] or [phone] - Goals for Treatment Patient goals for treatment: "I have problem with my blood pressure." Patient's family/SO goals for treatment: Please refer to SW progress note dated 11/30/2017 Discharge/Continuing Care - Education Needs Education Needs: Family Medication, Family Diagnosis/Disease Process, Family Placement options, Family Community resources, Family Activities of Daily Living , Family Personal Hygiene/Grooming, Family Aftercare Safety Plan - Discharge Discharge Criteria: Tolerates medication w/o severe side effects, Free of paranoid thoughts, Normal sleep pattern, Reduction of target symptoms Discharge to:: Care Home - Additional Comments 12/02/17 08:26 Pt seen in team meeting on 11/30/2017. Reason for admission reviewed and discussed. Pt reported being in the hospital due to "high blood pressure." Pt reported "memory some problems." Pt reported she lives with her mother and brother. Pt reported that her brother is going tot he be the president of the [employer] next year. Pt is alert and oriented to person only. Pt is disoriented and confused. Pt's medical and social issues reviewed. Pt's medications reviewed. Tx plan reviewed. SW to continue to follow case. - Treatment Team Participation Patient/Family/SO Statement: Dementia with behavioral disturbance, Psychosis NOS; pending placement in assisted living facility -Individual and group therapy -Continue Aricept 10 mg PO HS -Continue Namenda 5 mg PO BID -Continue Risperdal 0.25 mg PO HS -Case discussed w/ POA -Medicine consult -Disposition planning Discussed with Family/SO: Yes (Via telephone) Was Patient/Family/SO present at Treatment Team Meeting: Yes Treatment Plan Review Patient participation: Yes Family/SO/Caregiver participation: No (Reviewed via telephone) Additional Comments: Pt seen and discussed in team meeting. Pt's progress and bx on the unit reviewed. Pt is calm and cooperative. Pt is polite and appreciative with staff members. Pt is easily re-directed when needed. pt continues to demonstrate cognitive impairment. Pt's short term memory is poor. Pt is unable to recall previous conversations and activities. Certified Pathology Assistant explained to pt that her sister, Shani has been working on assisted living placement. Pt reported that she does not wish to go to an assisted living facility. Pt reported that she has her own home and wants to return home with a maid. Certified Pathology Assistant explained to pt that both interdisciplinary team and her sister do not agree with pt returning home without assistance ad/or care. Certified Pathology Assistant explained to pt that due to cognitive deficits she requires 24 hours supervision. Pt's insight and judgment is poor due to cognitive deficits. Pt is compliant with scheduled medications. Pt attends scheduled activity and clinical groups. Tx plan to be reviewed with sister and Shani ARIAS. Certified Pathology Assistant will continue to follow case. - Problem delusions Date Initiated: 11/29/17 Time Initiated: 21:00 Progress toward outcomes: improved altered sleep patterns Date Initiated: 11/29/17 Time Initiated: 21:00 Progress toward outcomes: improved - Discharge / Continuing Care Discharge to:: Other (Assisted Living Facility) Behavioral Health Services: Other (Medication Management; Structured group and individual therapy) Health Needs: Follow up care/test, Doctor appointments, Nutritional, Medications /Rx, Educational, Recreational/Social
[2017-12-09] MEDS: Insulin Lispro (humaLOG) 100 Units/ml Inj SC SCH ×3 (08:26→16:15)
[2017-12-09] MEDS: Cholecalciferol 400 Intl Units Tab PO SCH (08:37)
[2017-12-09] MEDS: Multivitamin With Minerals Tab PO SCH (08:37)
[2017-12-09] MEDS: Pantoprazole 40 mg EC Tab PO SCH (08:37)
--- NOTE | 2017-12-09 08:49 | PCM.PYCHPN ---
Psychiatric Progress Note - Psychiatric Progress Note Patient seen today, length of contact: Patient evaluated, case discussed with team, chart reviewed Patient Chief Complaint: "I'm okay." Problems Identified/Issues Discussed: No new events. Patient continues to be confused and disoriented due to chronic dementia. She is calm, cooperative, w/o any behavioral disturbances. She is at her baseline of functioning. She denies adverse effects to medications. No periods of agitation or aggression. No acute AH/VH/paranoia. She is pending assisted living placement. Medication Change: No Medical Record Reviewed: Yes Mental Status Examination - Cognitive Function Orientation: Person Memory: Impaired Attention: WNL Concentration: WNL Association: Loose Fund of Knowledge: Poor Decription of patient's judgement and insights: Chronic poor I/J due to dementia - Mood Mood: Neutral - Affect Affect: Broad - Speech Speech: Soft - Formal Thought Process Formal Thought Process: Loosening of associations Psychotic Thoughts and Behaviors: Denies AH/VH/paranoia - Suicidal Ideation Suicidal Ideation: No - Homicidal Ideation Homicidal Ideation: No Goal/Treatment Plan - Goal/Treatment Plan Need for Continued Stay: Severe functional impairment Progress Toward Problem(s) and Goals/Treatment Plan: Dementia with behavioral disturbance, Psychosis NOS; pending placement in assisted living facility -Individual and group therapy -Continue Aricept 10 mg PO HS -Continue Namenda 5 mg PO BID -Continue Risperdal 0.25 mg PO HS -Case discussed w/ POA -Medicine consult -Disposition planning Estimated Date of D/C: 12/13/17
[2017-12-10] MEDS: Multivitamin With Minerals Tab PO SCH (08:40)
[2017-12-10] MEDS: Cholecalciferol 400 Intl Units Tab PO SCH (08:41)
[2017-12-10] MEDS: Pantoprazole 40 mg EC Tab PO SCH (08:41)
[2017-12-10] MEDS: Insulin Lispro (humaLOG) 100 Units/ml Inj SC SCH ×4 (08:44→22:49)
--- NOTE | 2017-12-10 08:50 | PCM.PYCHPN ---
Psychiatric Progress Note - Psychiatric Progress Note Patient seen today, length of contact: Patient evaluated, case discussed with team, chart reviewed Patient Chief Complaint: "I'm okay." Problems Identified/Issues Discussed: No new events overnight. Patient continues to be confused and disoriented due to chronic dementia. She is calm, cooperative, w/o any behavioral disturbances. She is at her baseline of functioning. She denies adverse effects to medications. No periods of agitation or aggression. No acute AH/VH/ paranoia. She is pending assisted living placement. Medication Change: No Medical Record Reviewed: Yes Consults ordered or reviewed: Medicine consult Psychology consult: Pt is a 77 year old female admitted to the gerospych unit and referred to the justowriter operator for evaluation. On the DRS, pt scored an overalls score of 103 (125+ = intact cognitive skills). Pt scored within normal limits on Attent ion tasks. Pt's Initiation, Construction, Memory, and Conceptualization skills all fell in the Deficient Range. Pt acknowledged memory deficits on interview though was defensive on interview with confabulation also evident. Overal 103 Attention 32 Construction 3 Conceptualization 29 Initiation 26 Memory 13 Supervision indicated for more complex tasks and monitoring to determine needs. A day program would be helpful at this time and homemaker services Mental Status Examination - Cognitive Function Orientation: Person Memory: Impaired Attention: WNL Concentration: WNL Association: Loose Fund of Knowledge: Poor Decription of patient's judgement and insights: Chronic poor I/J due to dementia - Mood Mood: Neutral - Affect Affect: Broad - Speech Speech: Soft - Formal Thought Process Formal Thought Process: Loosening of associations Psychotic Thoughts and Behaviors: Denies AH/VH/paranoia - Suicidal Ideation Suicidal Ideation: No - Homicidal Ideation Homicidal Ideation: No Goal/Treatment Plan - Goal/Treatment Plan Need for Continued Stay: Severe functional impairment Progress Toward Problem(s) and Goals/Treatment Plan: Dementia with behavioral disturbance, Psychosis NOS; pending placement in assisted living facility -Individual and group therapy -Continue Aricept 10 mg PO HS -Continue Namenda 5 mg PO BID -Continue Risperdal 0.25 mg PO HS -Case discussed w/ POA -Medicine consult -Disposition planning Estimated Date of D/C: 12/14/17
[2017-12-11 08:27] LABS: BASO % 0.6 % (0.0-2.0); EOS # 0.2 K/uL (0.0-0.7); EOS % 2.6 % (0.0-4.0); LYMPH # 1.6 K/uL (1.0-4.3); LYMPH % 21.3 % (20.0-40.0); MEAN CELL VOLUME 87.2 fl (81.0-99.0); MEAN CORPUSCULAR HEMOGLOBIN 28.4 pg (27.0-31.0); MEAN CORPUSCULAR HGB CONC 32.6 g/dL (33.0-37.0); MEAN PLATELET VOLUME 7.5 fl (7.2-11.7); MONO # 0.6 K/uL (0.0-0.8); MONO % 8.7 % (0.0-10.0); NEUT % 66.8 % (50.0-75.0); NRBC % 0.1 % (0.0-0.0); RBC 2.51 Mil/uL (3.80-5.20); RED CELL DISTRIBUTION WIDTH 14.1 % (11.5-14.5); WHITE BLOOD COUNT 7.4 K/uL (4.8-10.8)
[2017-12-11] MEDS: Cholecalciferol 400 Intl Units Tab PO SCH (08:35)
[2017-12-11] MEDS: Pantoprazole 40 mg EC Tab PO SCH (08:37)
[2017-12-11] MEDS: Multivitamin With Minerals Tab PO SCH (08:37)
[2017-12-11 08:38] LABS: HEMOGLOBIN 7.1 g/dL (12.0-16.0)
[2017-12-11] MEDS: Insulin Lispro (humaLOG) 100 Units/ml Inj SC SCH ×3 (08:38→17:00)
[2017-12-11] MEDS ORDERED: Pantoprazole 40 mg EC Tab PO SCH (09:00)
--- NOTE | 2017-12-11 09:50 | PCM.PYCHPN ---
Psychiatric Progress Note - Psychiatric Progress Note Patient seen today, length of contact: Patient evaluated, case discussed with team, chart reviewed Patient Chief Complaint: pt has been still confused with poor insight .no agitation noted. Medication Change: No Medical Record Reviewed: Yes Mental Status Examination - Cognitive Function Orientation: Person Memory: Impaired Attention: WNL Concentration: WNL Association: Loose Fund of Knowledge: Poor - Mood Mood: Neutral - Affect Affect: Broad - Speech Speech: Soft - Formal Thought Process Formal Thought Process: Loosening of associations - Suicidal Ideation Suicidal Ideation: No - Homicidal Ideation Homicidal Ideation: No Goal/Treatment Plan - Goal/Treatment Plan Need for Continued Stay: Severe functional impairment Progress Toward Problem(s) and Goals/Treatment Plan: will continue to titrate namenda,aricept and risperdal as needed to stabilize the patient. Disposition as per dr brothers. Estimated Date of D/C: 12/14/17
[2017-12-11 16:27] VITALS: BP 128/57; PULSE 90; RESP 20; TEMP 97.9
--- NOTE | 2017-12-13 08:59 | PCM.PYCHDC ---
Mental Status Examination - Mental Status Examination Orientation: Person, Place Memory: Impaired Mood: Neutral Speech: Appropriate Attention: Poor Concentration: Poor Association: Loose Fund of Knowledge: WNL Formal Thought Process: Loosening of associations Description of patient's judgement and insight: Chronic poor I/J due to dementia Psychotic Thoughts and Behaviors: Denies AH/VH/paranoia Suicidal Ideation: No Current Homicidal Ideation?: No Discharge Summary - Discharge Note Reason for Hospitalization: HPI: 77 yo female w/ h/o dementia BIB sister for worsening dementia, wandering around (recently was found by friends waiting at the bus stop w/ 3 purses), standing in front of a mirror for hours talking to herself, having full conversations with people that are or not present in the room (possible AH vs VH), paranoia that her brother in law is stealing her belongings despite no one in the family having keys to her home and hoarding objects. Patient denies acute psychiatric complaints, denies depression/anxiety/SI/HI/AH/VH, but does believe that she lives w/ her mother who is no longer alive and believes she works giving out [employer]. Oriented x self and 2018 PPHx: Alzheimer's Dementia on Aricept and Namenda SHx: No homemaker, denies drugs/etoh/cig. Lives alone. Consultations:: List each consultation separately and include: 1. Reason for request. 2. Findings. 3. Follow-up Consultations: Medicine consult Psychology consult: Pt is a 77 year old female admitted to the gerospych unit and referred to the service writer advisor for evaluation. On the DRS, pt scored an overalls score of 103 (125+ = intact cognitive skills). Pt scored within normal limits on Attent ion tasks. Pt's Initiation, Construction, Memory, and Conceptualization skills all fell in the Deficient Range. Pt acknowledged memory deficits on interview though was defensive on interview with confabulation also evident. Overal 103 Attention 32 Construction 3 Conceptualization 29 Initiation 26 Memory 13 Supervision indicated for more complex tasks and monitoring to determine needs. A day program would be helpful at this time and homemaker services Summary of Hospital Course include:: 1. Description of specific treatment plan utilized for patients during their course of treatmen. 2. Summarize the time- course for resolution of acute symptoms and/or regressed behaviors. 3. Describe issues identified and worked on during hospitalization. 4. Describe medication utilized. 5. Describe medical problems identified and treated. 6. Reassessment of suicide risk Summary of Hospital Course: Patient was discharged to the ER for medical admission due to melena, heme + stools and drop in hematocrit on 12/11/17. - Diagnosis (1) Dementia with behavioral disturbance Status: Acute (2) Unspecified psychosis Status: Acute - Final Diagnosis (DSM 5) Condition upon Discharge: STABLE DSM 5: Dementia with behavioral disturbances Disposition: HOSPITALIZED Follow-up Treatment Plan: Dementia with behavioral disturbance, Psychosis NOS- Discharge to ER for medical admission due to medical emergency -Continue Aricept 10 mg PO HS -Continue Namenda 5 mg PO BID -Continue Risperdal 0.25 mg PO HS
== END 2017-12-11 18:07 | disposition short-term general hospital (02) | DRG 57 ==
LOC: H.ER 11:36 → H.ERHOLD 16:50 → H.STEP 18:37
PROVIDERS: ADMIT Psychiatry & Neurology Psychiatry; ATTEND Psychiatry & Neurology Psychiatry
PROC: GZHZZZZ Group Psychotherapy (ICD-10-PCS; principal; 2017-11-29)
PROC: GZ51ZZZ Individual Psychotherapy, Behavioral (ICD-10-PCS; 2017-11-29)
PROC: 3E0234Z Introduction of Serum, Toxoid and Vaccine into Muscle, Percutaneous Approach (ICD-10-PCS; 2017-11-30)
DX: G30.9 Alzheimer's disease, unspecified (principal); N39.0 Urinary tract infection, site not specified; K92.1 Melena; R71.0 Precipitous drop in hematocrit; F02.81 Dementia in other diseases classified elsewhere, unspecified severity, with behavioral disturbance; I10 Essential (primary) hypertension; Z79.84 Long term (current) use of oral hypoglycemic drugs; Z79.899 Other long term (current) drug therapy; Z90.49 Acquired absence of other specified parts of digestive tract; Z90.710 Acquired absence of both cervix and uterus; G47.9 Sleep disorder, unspecified; E11.9 Type 2 diabetes mellitus without complications; E78.00 Pure hypercholesterolemia, unspecified; Z23 Encounter for immunization

== ENCOUNTER 2017-12-11 18:04 | Inpatient (IN) | payer MEDICARE ==
--- NOTE | 2017-12-11 18:42 | ED PDOC ---
HPI: General Adult Time Seen by Provider: 12/11/17 18:28 Chief Complaint (Nursing): Abnormal Labs Chief Complaint (Provider): Low Hb History Per: Patient, Other Additional Complaint(s): Pt sent from [facility] for evaluation of decreasing Hb and melanotic stool. Pt c/o bilateral lower leg cramps that started when she arrived in ED. No other complaints. Past Medical History Reviewed: Nursing Documentation, Vital Signs Vital Signs: Last Vital Signs Temp 98.1 F 12/11/17 18:13 Pulse 82 12/11/17 18:13 Resp 18 12/11/17 18:13 BP 114/50 L 12/11/17 18:13 Pulse Ox 100 12/11/17 18:43 - Medical History PMH: Dementia, Diabetes, HTN Denies: Hepatitis, HIV, Seizures, Sexually Transmitted Disease - Surgical History Surgical History: Cholecystectomy - Family History Family History: States: Unknown Family Hx - Immunization History Hx Tetanus Toxoid Vaccination: No Hx Influenza Vaccination: No Hx Pneumococcal Vaccination: No - Home Medications Home Medications: Ambulatory Orders Medication Instructions Recorded Alprazolam [Xanax] 0.25 mg PO DAILY PRN 11/29/17 Amlodipine Besylate/Benazepril 1 cap PO DAILY 11/29/17 [Lotrel 5-10 mg Capsule] Donepezil HCl [Aricept] 5 mg PO DAILY 11/29/17 Memantine [Namenda] 5 mg PO Q12 11/29/17 metFORMIN [glucOPHAGE] 500 mg PO DAILY 11/29/17 Atorvastatin [Lipitor] 10 mg PO HS 12/11/17 Calcium Carbonate [Oscal] 500 mg PO DAILY 12/11/17 Donepezil [Aricept] 10 mg PO HS 12/11/17 Insulin Lispro [Humalog (Insulin 12/11/17 Lispro)] LORazepam [Ativan] 0.5 mg PO HS PRN 12/11/17 LORazepam [Ativan] 0.5 mg PO Q6 PRN 12/11/17 Magnesium Hydroxide [Milk Of 30 ml PO HS PRN 12/11/17 Magnesia] Multivit,Calc,Mins/Iron/Folic 1 tab PO DAILY 12/11/17 [Therapeutic-M Tablet] Ondansetron HCl [Zofran] 4 mg PO Q6 PRN 12/11/17 Pantoprazole Sodium [Protonix] 40 mg PO DAILY 12/11/17 Risperidone [Risperdal] 0.25 mg PO HS 12/11/17 amLODIPine [Norvasc] 10 mg PO DAILY 12/11/17 - Allergies Allergies/Adverse Reactions: Allergies Allergy/AdvReac Type Severity Reaction Status Date / Time apple Allergy ITCHING Verified 11/29/17 21:44 peach Allergy ITCHING Verified 11/29/17 21:44 nut - unspecified AdvReac Mild PAIN Verified 11/29/17 21:44 Review of Systems ROS Statement: Except As Marked, All Systems Reviewed And Found Negative Musculoskeletal: Positive for: Leg Pain Physical Exam - Reviewed Nursing Documentation Reviewed: Yes Vital Signs Reviewed: Yes - Physical Exam Appears: Positive for: Well, No Acute Distress Skin: Positive for: Normal Color, Warm, Dry Eye Exam: Positive for: Normal appearance, EOMI, PERRL Cardiovascular/Chest: Positive for: Regular Rate, Rhythm Respiratory: Positive for: Normal Breath Sounds Gastrointestinal/Abdominal: Positive for: Normal Exam, Bowel Sounds, Soft. Negative for: Tenderness Extremity: Positive for: Normal ROM, Capillary Refill (<2 sec). Negative for: Pedal Edema, Calf Tenderness, Deformity, Swelling Neurologic/Psych: Positive for: Alert, high pressure boiler operator II-XII, Oriented. Negative for: Motor/Sensory Deficits, Aphasia, Facial Droop - ECG Interpretation Of ECG: NSR @ 81, no ST-T changes. O2 Sat by Pulse Oximetry: 100 Pulse Ox Interpretation: Normal Medical Decision Making Medical Decision Makin yo female with anemia and melanotic stool. - labs - EKG - CXR - Protonix Disposition - Clinical Impression Clinical Impression: Anemia, Melena - Patient ED Disposition Is Patient to be Admitted: Yes - Disposition Disposition Time: 18:43 Condition: STABLE Forms: [employer] (Macedonian) - Pt Status Changed To: Hospital Disposition Of: Inpatient - Admit Certification Admit to Inpatient:: After my assessment, the patient will require hospitalization for at least two midnights. This is because of the severity of symptoms shown, intensity of services needed, and/or the medical risk in this patient being treated as an outpatient. - POA Present On Arrival: None
--- NOTE | 2017-12-11 19:10 | CP.PCM.HP ---
History of Present Illness - History of Present Illness History of Present Illness: 77 year old female PMH dementia, HLD, DM2, HTN, osteoporosis, was admitted to [facility] 2/2 confusion/chronic dementia, was found to have melena, heme positive stools, drop in hematocrit 35.5 to 21.9 today. Pt vitals stable, no acute distress. Repeating labs in ED, transfusing 1 unit PRBC, Gastroenterology consult with Dr. Alarcon, and Protonix 40 mg IV Q12. Monitor on telemetry for worsening sx. HD stable, NAD. ROS: per HPI all other systems reviewed and negative. Present on Admission - Present on Admission Any Indicators Present on Admission: No Past Patient History - Infectious Disease Hx of Infectious Diseases: None - Past Medical History & Family History Past Medical History?: Yes - Past Social History Smoking Status: Never Smoked - CARDIAC Hx Hypertension: Yes - PULMONARY Hx Tuberculosis: No - NEUROLOGICAL Hx Dementia: Yes Hx Seizures: No - ENDOCRINE/METABOLIC Hx Diabetes Mellitus Type 2: Yes - HEMATOLOGICAL/ONCOLOGICAL Hx Human Immunodeficiency Virus (HIV): No - MUSCULOSKELETAL/RHEUMATOLOGICAL Hx Falls: No - GENITOURINARY/GYNECOLOGICAL Hx Sexually Transmitted Disorders: No - PSYCHIATRIC Hx Substance Use: No - SURGICAL HISTORY Hx Cholecystectomy: Yes - ANESTHESIA Hx Anesthesia: Yes Hx Anesthesia Reactions: No Hx Malignant Hyperthermia: No Meds Allergies/Adverse Reactions: Allergies Allergy/AdvReac Type Severity Reaction Status Date / Time apple Allergy ITCHING Verified 11/29/17 21:44 peach Allergy ITCHING Verified 11/29/17 21:44 nut - unspecified AdvReac Mild PAIN Verified 11/29/17 21:44 Physical Exam - Constitutional Appears: Non-toxic, No Acute Distress - Head Exam Head Exam: ATRAUMATIC, NORMOCEPHALIC - Eye Exam Eye Exam: EOMI, Normal appearance, PERRL - ENT Exam ENT Exam: Mucous Membranes Moist, Normal Oropharynx - Respiratory Exam Respiratory Exam: Clear to Auscultation Bilateral, NORMAL BREATHING PATTERN - Cardiovascular Exam Cardiovascular Exam: RRR, +S1, +S2 - GI/Abdominal Exam GI & Abdominal Exam: Normal Bowel Sounds, Soft. absent: Mass, Tenderness - Extremities Exam Extremities exam: Positive for: normal capillary refill, pedal pulses present - Back Exam Back exam: absent: CVA tenderness (L), CVA tenderness (R) - Neurological Exam Neurological exam: Alert, Reflexes Normal - Psychiatric Exam Psychiatric exam: Normal Affect, Normal Mood - Skin Skin Exam: Dry, Warm Results - Vital Signs Recent Vital Signs: Last Vital Signs Temp 98.1 F 12/11/17 18:13 Pulse 82 12/11/17 18:13 Resp 18 12/11/17 18:13 BP 114/50 L 12/11/17 18:13 Pulse Ox 100 12/11/17 18:58 Assessment & Plan - Assessment and Plan (Free Text) Plan: 77 year old female PMH dementia, HLD, DM2, HTN, osteoporosis, was admitted to [facility] 2/2 confusion/chronic dementia, was found to have melena, heme positive stools, drop in hematocrit 35.5 to 21.9 today. Pt vitals stable, no acute distress. Repeating labs in ED, transfusing 1 unit PRBC, Gastroenterology consult with Dr. Alarcon, and Protonix 40 mg IV Q12. Monitor on telemetry for worsening sx. HD stable, NAD. GIB was found to have melena, heme positive stools, drop in hematocrit 35.5 to 21.9 today HD stable NPO except meds transfusing 1 unit PRBC Gastroenterology consult with Dr. Alarcon Protonix 40 mg IV Q12 Zofran PRN Monitor on telemetry for worsening sx. Dementia Ativan and Xanax PRN as was ordered in [facility] cont Namenda, Aricept, Risperdal DM2 accuchecks ISS low HTN cont Norvasc HLD cont Lipitor
[2017-12-11 19:22] LABS: BASO # 0.1 K/uL (0.0-0.2); BASO % 0.6 % (0.0-2.0); EOS # 0.1 K/uL (0.0-0.7); EOS % 1.4 % (0.0-4.0); HEMOGLOBIN 7.4 g/dL (12.0-16.0); LYMPH # 1.9 K/uL (1.0-4.3); LYMPH % 21.4 % (20.0-40.0); MEAN CELL VOLUME 87.2 fl (81.0-99.0); MEAN CORPUSCULAR HEMOGLOBIN 28.7 pg (27.0-31.0); MEAN CORPUSCULAR HGB CONC 32.9 g/dL (33.0-37.0); MEAN PLATELET VOLUME 7.4 fl (7.2-11.7); MONO # 0.8 K/uL (0.0-0.8); NEUT % 67.6 % (50.0-75.0); RBC 2.58 Mil/uL (3.80-5.20); RED CELL DISTRIBUTION WIDTH 14.1 % (11.5-14.5); WHITE BLOOD COUNT 8.8 K/uL (4.8-10.8)
[2017-12-11 19:29] LABS: INR 0.9 (0.9-1.2); PROTHROMBIN TIME 9.9 Seconds (9.8-13.1)
[2017-12-11 19:30] LABS: PARTIAL THROMBOPLASTIN TIME 33.8 Seconds (25.6-37.1)
[2017-12-11 19:44] LABS: ALB/GLOB RATIO 1.1 (1.0-2.1); ALBUMIN 3.9 g/dL (3.5-5.0); CALCIUM 8.7 mg/dL (8.4-10.2)
--- NOTE | 2017-12-12 01:11 | CP.PCM.CON ---
History of Present Illness - History of Present Illness History of Present Illness: 77 yo female recently admitted to [facility] for confusion and found to have melena. Hgb dropped from 35 to 22. Review of Systems - Constitutional Constitutional: absent: Chills - EENT Eyes: absent: Change in Vision Ears: absent: Ear Discharge - Cardiovascular Cardiovascular: absent: Chest Pain - Respiratory Respiratory: absent: Dyspnea - Gastrointestinal Gastrointestinal: absent: Abdominal Pain - Genitourinary Genitourinary: absent: Change in Urinary Stream Past Patient History - Infectious Disease Hx of Infectious Diseases: None - Past Medical History & Family History Past Medical History?: Yes - Past Social History Smoking Status: Never Smoked - CARDIAC Hx Cardiac Disorders: Yes Hx Hypertension: Yes - PULMONARY Hx Respiratory Disorders: No - NEUROLOGICAL Hx Neurological Disorder: Yes Hx Dementia: Yes - RENAL Hx Chronic Kidney Disease: No - ENDOCRINE/METABOLIC Hx Endocrine Disorders: Yes Hx Diabetes Mellitus Type 2: Yes - HEMATOLOGICAL/ONCOLOGICAL Hx Blood Disorders: Yes Hx Anemia: Yes - MUSCULOSKELETAL/RHEUMATOLOGICAL Hx Falls: No - GENITOURINARY/GYNECOLOGICAL Hx Genitourinary Disorders: No - PSYCHIATRIC Hx Substance Use: No - SURGICAL HISTORY Hx Cholecystectomy: Yes Hx Hysterectomy: Yes - ANESTHESIA Hx Anesthesia: Yes Hx Anesthesia Reactions: No Hx Malignant Hyperthermia: No Meds Allergies/Adverse Reactions: Allergies Allergy/AdvReac Type Severity Reaction Status Date / Time apple Allergy ITCHING Verified 11/29/17 21:44 peach Allergy ITCHING Verified 11/29/17 21:44 nut - unspecified AdvReac Mild PAIN Verified 11/29/17 21:44 - Medications Medications: Current Medications Alprazolam (Xanax) 0.25 mg PO DAILY PRN PRN Reason: Anxiety Stop: 12/18/17 18:51 Amlodipine Besylate (Norvasc) 10 mg PO DAILY [facility] Atorvastatin Calcium (Lipitor) 10 mg PO HS [facility] Last Admin: 12/11/17 22:43 Dose: 10 mg Calcium Carbonate (Oscal) 500 mg PO DAILY [facility] Donepezil HCl (Aricept) 10 mg PO HS [facility] Last Admin: 12/11/17 22:43 Dose: 10 mg Donepezil HCl (Aricept) 5 mg PO DAILY [facility] Lorazepam (Ativan) 0.5 mg PO HS PRN PRN Reason: Agitation Lorazepam (Ativan) 0.5 mg PO Q6 PRN PRN Reason: Agitation Memantine (Namenda) 5 mg PO Q12 [facility] Last Admin: 12/11/17 22:43 Dose: 5 mg Ondansetron HCl (Zofran Inj) 4 mg IVP Q6 PRN PRN Reason: Nausea/Vomiting Pantoprazole Sodium (Protonix Inj) 40 mg IVP Q12 [facility] Last Admin: 12/11/17 22:35 Dose: Not Given Risperidone (Risperdal Tab) 0.25 mg PO HS [facility] Last Admin: 12/11/17 22:43 Dose: 0.25 mg Physical Exam - Constitutional Appears: No Acute Distress - Head Exam Head Exam: ATRAUMATIC - Eye Exam Eye Exam: Normal appearance - ENT Exam ENT Exam: Mucous Membranes Moist - Neck Exam Neck exam: Positive for: Normal Inspection - Respiratory Exam Respiratory Exam: NORMAL BREATHING PATTERN - Cardiovascular Exam Cardiovascular Exam: REGULAR RHYTHM, +S1, +S2 - GI/Abdominal Exam GI & Abdominal Exam: Normal Bowel Sounds, Soft. absent: Tenderness Results - Vital Signs Recent Vital Signs: Last Vital Signs Temp 98.4 F 12/11/17 23:59 Pulse 75 12/11/17 23:59 Resp 18 12/11/17 23:59 BP 111/65 12/11/17 23:59 Pulse Ox 99 12/11/17 23:59 - Labs Result Diagrams: 12/11/17 19:06 12/11/17 19:06 Labs: Laboratory Results - last 24 hr 12/11/17 12/11/17 12/11/17 19:06 19:06 19:06 WBC 8.8 RBC 2.58 L Hgb 7.4 L Hct 22.5 L MCV 87.2 MCH 28.7 MCHC 32.9 L RDW 14.1 Plt Count 285 MPV 7.4 Neut % (Auto) 67.6 Lymph % (Auto) 21.4 [place] % (Auto) 9.0 Eos % (Auto) 1.4 Baso % (Auto) 0.6 Neut # (Auto) 6.0 Lymph # (Auto) 1.9 [place] # (Auto) 0.8 Eos # (Auto) 0.1 Baso # (Auto) 0.1 PT 9.9 INR 0.9 APTT 33.8 Sodium 145 Potassium 4.2 Chloride 103 Carbon Dioxide 27 Anion Gap 19 BUN 19 H Creatinine 1.1 Est GFR ( Amer) 58 Est GFR (Non-Af Amer) 48 POC Glucose (mg/dL) Random Glucose 130 H Calcium 8.7 Total Bilirubin 0.4 AST 25 ALT 36 Alkaline Phosphatase 105 Total Protein 7.4 Albumin 3.9 Globulin 3.5 Albumin/Globulin Ratio 1.1 Blood Type Antibody Screen Crossmatch BBK History Checked 12/11/17 12/11/17 19:06 22:13 WBC RBC Hgb Hct MCV MCH MCHC RDW Plt Count MPV Neut % (Auto) Lymph % (Auto) [place] % (Auto) Eos % (Auto) Baso % (Auto) Neut # (Auto) Lymph # (Auto) [place] # (Auto) Eos # (Auto) Baso # (Auto) PT INR APTT Sodium Potassium Chloride Carbon Dioxide Anion Gap BUN Creatinine Est GFR ( Amer) Est GFR (Non-Af Amer) POC Glucose (mg/dL) 126 H Random Glucose Calcium Total Bilirubin AST ALT Alkaline Phosphatase Total Protein Albumin Globulin Albumin/Globulin Ratio Blood Type B POSITIVE Antibody Screen Negative Crossmatch See Detail BBK History Checked Patient has bt Assessment & Plan (1) Melena Assessment and Plan: Melena and normocytic anemia. R/o upper GI bleed from ulcer, gastritis, mass, or other lesion Agree with BID Protonix and transfusion 1 unit PRBC. Likely upper endoscopy Wednesday. Status: Acute - Date & Time Date: 12/11/17 Time: 23:00
[2017-12-12 07:32] LABS: MEAN CELL VOLUME 85.9 fl (81.0-99.0); MEAN CORPUSCULAR HEMOGLOBIN 28.8 pg (27.0-31.0); MEAN CORPUSCULAR HGB CONC 33.6 g/dL (33.0-37.0); RBC 3.45 Mil/uL (3.80-5.20); RED CELL DISTRIBUTION WIDTH 14.5 % (11.5-14.5); WHITE BLOOD COUNT 8.6 K/uL (4.8-10.8)
[2017-12-12 07:52] LABS: BLOOD UREA NITROGEN 15 mg/dl (7-17); CALCIUM 9.1 mg/dL (8.4-10.2); GFR AFRICAN-AMERICAN > 60; GFR NON-AFRICAN AMERICAN 54
--- NOTE | 2017-12-12 08:38 | RAD ---
HISTORY: Admission COMPARISON: Chest radiograph dated 11/29/2017. FINDINGS: LUNGS: No active pulmonary disease. PLEURA: No significant pleural effusion identified, no pneumothorax apparent. CARDIOVASCULAR: Atherosclerotic aortic calcifications. Cardiomediastinal silhouette within normal limits. OSSEOUS STRUCTURES: Unchanged. VISUALIZED UPPER ABDOMEN: Normal. OTHER FINDINGS: None. IMPRESSION: No active disease.
--- NOTE | 2017-12-12 10:07 | CP.PCM.PN ---
Subjective - Date & Time of Evaluation Date of Evaluation: 12/12/17 Time of Evaluation: 10:05 - Subjective Subjective: doing well this morning no complaints feeling improved continues to have small amounts of melena hd stable NAD Objective - Vital Signs/Intake and Output Vital Signs (last 24 hours): Temp Pulse Resp BP Pulse Ox 97.8 F 72 18 130/70 100 12/12/17 08:14 12/12/17 08:40 12/12/17 08:14 12/12/17 08:40 12/12/17 08:14 - Medications Medications: Current Medications Alprazolam (Xanax) 0.25 mg PO DAILY PRN PRN Reason: Anxiety Stop: 12/18/17 18:51 Amlodipine Besylate (Norvasc) 10 mg PO DAILY [facility] Last Admin: 12/12/17 08:40 Dose: 10 mg Atorvastatin Calcium (Lipitor) 10 mg PO HS [facility] Last Admin: 12/11/17 22:43 Dose: 10 mg Calcium Carbonate (Oscal) 500 mg PO DAILY [facility] Last Admin: 12/12/17 08:36 Dose: 500 mg Donepezil HCl (Aricept) 10 mg PO HS [facility] Last Admin: 12/11/17 22:43 Dose: 10 mg Donepezil HCl (Aricept) 5 mg PO DAILY [facility] Last Admin: 12/12/17 08:36 Dose: 5 mg Lorazepam (Ativan) 0.5 mg PO HS PRN PRN Reason: Agitation Lorazepam (Ativan) 0.5 mg PO Q6 PRN PRN Reason: Agitation Memantine (Namenda) 5 mg PO Q12 [facility] Last Admin: 12/12/17 08:36 Dose: 5 mg Ondansetron HCl (Zofran Inj) 4 mg IVP Q6 PRN PRN Reason: Nausea/Vomiting Pantoprazole Sodium (Protonix Inj) 40 mg IVP Q12 [facility] Last Admin: 12/12/17 08:36 Dose: 40 mg Risperidone (Risperdal Tab) 0.25 mg PO HS [facility] Last Admin: 12/11/17 22:43 Dose: 0.25 mg - Labs Labs: 12/12/17 05:20 12/12/17 05:20 PT 9.9 Seconds (9.8-13.1) 12/11/17 19:06 INR 0.9 (0.9-1.2) 12/11/17 19:06 APTT 33.8 Seconds (25.6-37.1) 12/11/17 19:06 - Constitutional Appears: Non-toxic, No Acute Distress - Head Exam Head Exam: ATRAUMATIC, NORMOCEPHALIC - Eye Exam Eye Exam: EOMI, Normal appearance, PERRL Pupil Exam: NORMAL ACCOMODATION - ENT Exam ENT Exam: Mucous Membranes Moist, Normal Oropharynx - Neck Exam Neck Exam: Full ROM, Normal Inspection - Respiratory Exam Respiratory Exam: Clear to Ausculation Bilateral, NORMAL BREATHING PATTERN - Cardiovascular Exam Cardiovascular Exam: RRR, +S1, +S2 - GI/Abdominal Exam GI & Abdominal Exam: Soft, Normal Bowel Sounds. absent: Tenderness, Organomegaly - Extremities Exam Extremities Exam: Normal Capillary Refill, Normal Inspection - Back Exam Back Exam: absent: CVA tenderness (L), CVA tenderness (R) - Neurological Exam Neurological Exam: Alert, Awake - Psychiatric Exam Psychiatric exam: Normal Affect, Normal Mood - Skin Skin Exam: Dry, Warm Assessment and Plan - Assessment and Plan (Free Text) Plan: 77 year old female PMH dementia, HLD, DM2, HTN, osteoporosis, was admitted to [facility] 2/2 confusion/chronic dementia, was found to have melena, heme positive stools, drop in hematocrit 35.5 to 21.9 today. Pt vitals stable, no acute distress. Repeating labs in ED, transfusing 1 unit PRBC, Gastroenterology consult with Dr. Alarcon, and Protonix 40 mg IV Q12. Monitor on telemetry for worsening sx. HD stable, NAD. GIB was found to have melena, heme positive stools, drop in hematocrit 35.5 to 21.9. improved after one unit PRBC yesterday, hematocrit 29.6, however will repeat HD stable NPO except meds Gastroenterology consult with Dr. Alarcon Protonix 40 mg IV Q12 Zofran PRN Monitor on telemetry for worsening sx, tachycardia 2/2 bleed Dementia Ativan and Xanax PRN as was ordered in [facility] cont Namenda, Aricept, Risperdal DM2 accuchecks ISS low HTN cont Norvasc HLD cont Lipitor
--- NOTE | 2017-12-12 10:34 | CARD ---
APPROVED REPORT EKG Measurement Heart [id number] WI [id number] <Conclusion> Normal sinus rhythm Normal ECG
--- NOTE | 2017-12-12 11:14 | CP.PCM.PN ---
Subjective - Date & Time of Evaluation Date of Evaluation: 12/12/17 Time of Evaluation: 11:12 - Subjective Subjective: No complaints or evidence of further bleeding Objective - Vital Signs/Intake and Output Vital Signs (last 24 hours): Temp Pulse Resp BP Pulse Ox 97.8 F 72 18 130/70 100 12/12/17 08:14 12/12/17 08:40 12/12/17 08:14 12/12/17 08:40 12/12/17 08:14 - Medications Medications: Current Medications Alprazolam (Xanax) 0.25 mg PO DAILY PRN PRN Reason: Anxiety Stop: 12/18/17 18:51 Amlodipine Besylate (Norvasc) 10 mg PO DAILY [facility] Last Admin: 12/12/17 08:40 Dose: 10 mg Atorvastatin Calcium (Lipitor) 10 mg PO HS [facility] Last Admin: 12/11/17 22:43 Dose: 10 mg Calcium Carbonate (Oscal) 500 mg PO DAILY [facility] Last Admin: 12/12/17 08:36 Dose: 500 mg Donepezil HCl (Aricept) 10 mg PO HS [facility] Last Admin: 12/11/17 22:43 Dose: 10 mg Donepezil HCl (Aricept) 5 mg PO DAILY [facility] Last Admin: 12/12/17 08:36 Dose: 5 mg Lorazepam (Ativan) 0.5 mg PO HS PRN PRN Reason: Agitation Lorazepam (Ativan) 0.5 mg PO Q6 PRN PRN Reason: Agitation Memantine (Namenda) 5 mg PO Q12 [facility] Last Admin: 12/12/17 08:36 Dose: 5 mg Ondansetron HCl (Zofran Inj) 4 mg IVP Q6 PRN PRN Reason: Nausea/Vomiting Pantoprazole Sodium (Protonix Inj) 40 mg IVP Q12 [facility] Last Admin: 12/12/17 08:36 Dose: 40 mg Risperidone (Risperdal Tab) 0.25 mg PO HS [facility] Last Admin: 12/11/17 22:43 Dose: 0.25 mg - Labs Labs: 12/12/17 05:20 12/12/17 05:20 PT 9.9 Seconds (9.8-13.1) 12/11/17 19:06 INR 0.9 (0.9-1.2) 12/11/17 19:06 APTT 33.8 Seconds (25.6-37.1) 12/11/17 19:06 - Head Exam Head Exam: ATRAUMATIC - Eye Exam Eye Exam: Normal appearance Pupil Exam: PERRL - Neck Exam Neck Exam: Full ROM - Respiratory Exam Respiratory Exam: Clear to Ausculation Bilateral - Cardiovascular Exam Cardiovascular Exam: REGULAR RHYTHM - GI/Abdominal Exam GI & Abdominal Exam: Soft, Normal Bowel Sounds. absent: Tenderness Assessment and Plan (1) Melena Assessment & Plan: Hgb better. No active bleeding now. Upper endoscopy tomorrow to evaluate source of melena. Status: Acute
[2017-12-12] MEDS: Potassium Ch 20mEq in D5-1/2NS 1,000 ML IV SCH (18:06)
[2017-12-12 23:19] LABS: SQUAMOUS EPITHIAL < 1 /hpf (0-5); URINE BILIRUBIN NEGATIVE (NEGATIVE); URINE BLOOD NEGATIVE (NEGATIVE); URINE CLARITY CLEAR (Clear); URINE COLOR YELLOW (YELLOW); URINE GLUCOSE (UA) NEG (Normal); URINE LEUKOCYTE ESTERASE NEG Leu/uL (Negative); URINE PROTEIN NEGATIVE (NEGATIVE); URINE UROBILINOGEN 0.2-1.0 mg/dL (0.2-1.0)
[2017-12-13] MEDS: Potassium Ch 20mEq in D5-1/2NS 1,000 ML IV SCH ×2 (02:56→19:02)
[2017-12-13 06:58] LABS: BLOOD UREA NITROGEN 14 mg/dl (7-17); CALCIUM 8.9 mg/dL (8.4-10.2); GFR AFRICAN-AMERICAN > 60; GFR NON-AFRICAN AMERICAN 54
[2017-12-13 07:31] LABS: HEMOGLOBIN 9.4 g/dL (12.0-16.0); MEAN CELL VOLUME 85.8 fl (81.0-99.0); MEAN CORPUSCULAR HEMOGLOBIN 29.3 pg (27.0-31.0); MEAN CORPUSCULAR HGB CONC 34.1 g/dL (33.0-37.0); RBC 3.21 Mil/uL (3.80-5.20); RED CELL DISTRIBUTION WIDTH 14.1 % (11.5-14.5); WHITE BLOOD COUNT 6.9 K/uL (4.8-10.8)
[2017-12-13] MEDS ORDERED: Lactated Ringer's 500 ML IV ONE (10:07)
[2017-12-13] MEDS ORDERED: Propofol 10 mg/ml Inj (20 ML) ONE (10:49)
--- NOTE | 2017-12-13 12:06 | CP.PCM.PN ---
Subjective - Date & Time of Evaluation Date of Evaluation: 12/13/17 Time of Evaluation: 12:06 - Subjective Subjective: pt stable no pain admits to small amount of black stool this morning, however uncertain if patient is reliable historian EGD, NO ACUTE FINDINGS HD stable at this time will monitor H/H Objective - Vital Signs/Intake and Output Vital Signs (last 24 hours): Temp Pulse Resp BP Pulse Ox 97.3 F L 67 15 107/62 98 12/13/17 11:15 12/13/17 11:15 12/13/17 11:15 12/13/17 11:15 12/13/17 11:15 Intake and Output: 12/13/17 12/13/17 06:59 18:59 Intake Total 100 Balance 100 - Medications Medications: Current Medications Alprazolam (Xanax) 0.25 mg PO DAILY PRN PRN Reason: Anxiety Stop: 12/18/17 18:51 Amlodipine Besylate (Norvasc) [address] [facility] Last Admin: 12/12/17 08:40 Dose: 10 mg Atorvastatin Calcium (Lipitor) [address] [facility] Last Admin: 12/12/17 21:41 Dose: 10 mg Calcium Carbonate (Oscal) [address] [facility] Last Admin: 12/12/17 08:36 Dose: 500 mg Donepezil HCl (Aricept) [address] [facility] Last Admin: 12/12/17 21:41 Dose: 10 mg Donepezil HCl (Aricept) [address] [facility] Last Admin: 12/12/17 08:36 Dose: 5 mg Potassium Chloride/Dextrose/Sod Cl (Potassium Chl 20 Meq In D5-1/2ns) 1,000 mls @ 100 mls/hr IV .Q10H [facility] Stop: 12/13/17 16:14 Last Admin: 12/13/17 02:56 Dose: 100 mls/hr Lorazepam (Ativan) 0.5 mg PO HS PRN PRN Reason: Agitation Lorazepam (Ativan) 0.5 mg PO Q6 PRN PRN Reason: Agitation Memantine (Namenda) [address] [facility] Last Admin: 12/12/17 21:40 Dose: 5 mg Ondansetron HCl (Zofran Inj) 4 mg IVP Q6 PRN PRN Reason: Nausea/Vomiting Pantoprazole Sodium (Protonix Inj) 40 mg IVP Q12 [facility] Last Admin: 12/12/17 21:40 Dose: 40 mg Risperidone (Risperdal Tab) 0.25 mg PO HS [facility] Last Admin: 12/12/17 21:41 Dose: 0.25 mg - Labs Labs: 12/13/17 04:25 12/13/17 04:25 PT 9.9 Seconds (9.8-13.1) 12/11/17 19:06 INR 0.9 (0.9-1.2) 12/11/17 19:06 APTT 33.8 Seconds (25.6-37.1) 12/11/17 19:06 - Additional Findings Additional findings: General: awake, alert HEENT: NCAT, PERRL, EOMI HEART: RRR, S1, S2 no MRG LUNG: CTAB, no WRR ABD: soft, NT, ND, no mass, no HSM EXT: warm, well perfused NEURO: awake, alert SKIN: warm, dry PSYCH: normal mood, normal affect Assessment and Plan - Assessment and Plan (Free Text) Plan: 77 year old female PMH dementia, HLD, DM2, HTN, osteoporosis, was admitted to [facility] 2/2 confusion/chronic dementia, was found to have melena, heme positive stools, drop in hematocrit 35.5 to 21.9 today. Pt vitals stable, no acute distress. Repeating labs in ED, transfusing 1 unit PRBC, Gastroenterology consult with Dr. Alarcon, and Protonix 40 mg IV Q12. Monitor on telemetry for worsening sx. HD stable, NAD. GIB was found to have melena, heme positive stools, drop in hematocrit 35.5 to 21.9. improved after one unit PRBC hematocrit 29.6 yesterday, however will repeat tomorrow as well HD stable NPO except meds, consider advancing to liquid Gastroenterology consult with Dr. Alarcon, no acute findings on EGD today, will monitor H/H tomorrow Protonix 40 mg IV Q12 Zofran PRN Monitor on telemetry for worsening sx, tachycardia 2/2 bleed Dementia Ativan and Xanax PRN as was ordered in [facility] cont Namenda, Aricept, Risperdal DM2 accuchecks ISS low HTN cont Norvasc HLD cont Lipitor
[2017-12-13] MEDS ORDERED: Potassium Ch 20mEq in D5-1/2NS 1,000 ML IV SCH (18:30)
[2017-12-14 05:44] LABS: HEMOGLOBIN 9.1 g/dL (12.0-16.0); MEAN CELL VOLUME 86.3 fl (81.0-99.0); MEAN CORPUSCULAR HEMOGLOBIN 28.6 pg (27.0-31.0); MEAN CORPUSCULAR HGB CONC 33.1 g/dL (33.0-37.0); RBC 3.2 Mil/uL (3.80-5.20); RED CELL DISTRIBUTION WIDTH 14.5 % (11.5-14.5); WHITE BLOOD COUNT 7.2 K/uL (4.8-10.8)
[2017-12-14 05:57] LABS: CALCIUM 8.5 mg/dL (8.4-10.2)
--- NOTE | 2017-12-14 11:16 | CP.PCM.PN ---
Subjective - Date & Time of Evaluation Date of Evaluation: 12/14/17 Time of Evaluation: 11:16 - Subjective Subjective: pt doing well this morning does not admit to any further episodes of bleeding H/H is stable, HD stable no acute distress Objective - Vital Signs/Intake and Output Vital Signs (last 24 hours): Temp Pulse Resp BP Pulse Ox 98.3 F 69 18 109/68 97 12/14/17 07:51 12/14/17 09:00 12/14/17 07:51 12/14/17 08:15 12/14/17 07:51 Intake and Output: General: awake, alert HEENT: NCAT, PERRL, EOMI HEART: RRR, S1, S2 no MRG LUNG: CTAB, no WRR ABD: soft, NT, ND, no mass, no HSM EXT: warm, well perfused NEURO: awake, alert SKIN: warm, dry PSYCH: normal mood, normal affect - Medications Medications: Current Medications Alprazolam (Xanax) 0.25 mg PO DAILY PRN PRN Reason: Anxiety Stop: 12/18/17 18:51 Amlodipine Besylate (Norvasc) 10 mg PO DAILY [facility] Last Admin: 12/14/17 08:15 Dose: 10 mg Atorvastatin Calcium (Lipitor) 10 mg PO HS [facility] Last Admin: 12/13/17 21:21 Dose: 10 mg Calcium Carbonate (Oscal) 500 mg PO DAILY [facility] Last Admin: 12/14/17 08:16 Dose: 500 mg Donepezil HCl (Aricept) 10 mg PO HS [facility] Last Admin: 12/13/17 21:21 Dose: 10 mg Donepezil HCl (Aricept) 5 mg PO DAILY [facility] Last Admin: 12/14/17 08:15 Dose: 5 mg Lorazepam (Ativan) 0.5 mg PO HS PRN PRN Reason: Agitation Lorazepam (Ativan) 0.5 mg PO Q6 PRN PRN Reason: Agitation Memantine (Namenda) 5 mg PO Q12 [facility] Last Admin: 12/14/17 08:16 Dose: 5 mg Ondansetron HCl (Zofran Inj) 4 mg IVP Q6 PRN PRN Reason: Nausea/Vomiting Pantoprazole Sodium (Protonix Inj) 40 mg IVP Q12 [facility] Last Admin: 12/14/17 08:16 Dose: 40 mg Risperidone (Risperdal Tab) 0.25 mg PO HS [facility] Last Admin: 12/13/17 21:21 Dose: 0.25 mg - Labs Labs: 12/14/17 04:50 12/14/17 04:50 PT 9.9 Seconds (9.8-13.1) 12/11/17 19:06 INR 0.9 (0.9-1.2) 12/11/17 19:06 APTT 33.8 Seconds (25.6-37.1) 12/11/17 19:06 Assessment and Plan - Assessment and Plan (Free Text) Plan: 77 year old female PMH dementia, HLD, DM2, HTN, osteoporosis, was admitted to [facility] 2/2 confusion/chronic dementia, was found to have melena, heme positive stools, drop in hematocrit 35.5 to 21.9. Pt vitals stable, no acute distress. Repeating labs in ED, transfused1 unit PRBC, Gastroenterology consult with Dr. Alarcon, and Protonix 40 mg IV Q12. PT consult for skilled needs. Pt for discharge to correction vs home with 24 hr home care? Social work on board. GIB was found to have melena, heme positive stools, drop in hematocrit 35.5 to 21.9. improved after one unit PRBC hematocrit 29.6 yesterday, however will repeat tomorrow as well. Stable today HD stable NPO except meds, consider advancing to liquid Gastroenterology consult with Dr. Alarcon, no acute findings on EGD, will monitor H/H tomorrow Protonix 40 mg IV Q12 Zofran PRN Monitor on telemetry for worsening sx, tachycardia 2/2 bleed Dementia Ativan and Xanax PRN as was ordered in [facility] cont Namenda, Aricept, Risperdal Psych consult ordered, pt is stable from psych standpoint, no behavioral disturbances. DM2 accuchecks ISS low HTN cont Norvasc HLD cont Lipitor
--- NOTE | 2017-12-14 12:25 | CP.PCM.CON ---
History of Present Illness - History of Present Illness History of Present Illness: Psychiatry consult note HPI: 77 yo female w/ h/o dementia, admitted to medicine w/ melena and drop in hemoglobin. Patient has chronic dementia, but does not currently have any behavioral issues. Patient denies acute psychiatric complaints, denies depression/anxiety/SI/HI/AH/VH/paranoia. PPHx: Alzheimer's Dementia SHx: Retired, Single; Denies drugs/etoh/cig. Lives alone. Impression: 77 yo female w/ Dementia without current behavioral disturbances. No acute psychiatric complaints or issues. Patient is psychiatrically stable for discharge. -Continue current medications -Patient is psychiatrically stable for discharge or referral to [facility] placement depending on POA (sister) preference Past Patient History - Infectious Disease Hx of Infectious Diseases: None - Past Medical History & Family History Past Medical History?: Yes - Past Social History Smoking Status: Never Smoked - CARDIAC Hx Cardiac Disorders: Yes Hx Hypertension: Yes - PULMONARY Hx Respiratory Disorders: No - NEUROLOGICAL Hx Neurological Disorder: Yes Hx Dementia: Yes - RENAL Hx Chronic Kidney Disease: No - ENDOCRINE/METABOLIC Hx Endocrine Disorders: Yes Hx Diabetes Mellitus Type 2: Yes - HEMATOLOGICAL/ONCOLOGICAL Hx Blood Disorders: Yes Hx Anemia: Yes - MUSCULOSKELETAL/RHEUMATOLOGICAL Hx Falls: No - GENITOURINARY/GYNECOLOGICAL Hx Genitourinary Disorders: No - PSYCHIATRIC Hx Substance Use: No - SURGICAL HISTORY Hx Cholecystectomy: Yes Hx Hysterectomy: Yes - ANESTHESIA Hx Anesthesia: Yes Hx Anesthesia Reactions: No Hx Malignant Hyperthermia: No Meds Allergies/Adverse Reactions: Allergies Allergy/AdvReac Type Severity Reaction Status Date / Time apple Allergy ITCHING Verified 11/29/17 21:44 peach Allergy ITCHING Verified 11/29/17 21:44 nut - unspecified AdvReac Mild PAIN Verified 11/29/17 21:44 - Medications Medications: Current Medications Alprazolam (Xanax) 0.25 mg PO DAILY PRN PRN Reason: Anxiety Stop: 12/18/17 18:51 Amlodipine Besylate (Norvasc) 10 mg PO DAILY [facility] Last Admin: 12/14/17 08:15 Dose: 10 mg Atorvastatin Calcium (Lipitor) 10 mg PO HS [facility] Last Admin: 12/13/17 21:21 Dose: 10 mg Calcium Carbonate (Oscal) 500 mg PO DAILY [facility] Last Admin: 12/14/17 08:16 Dose: 500 mg Donepezil HCl (Aricept) 10 mg PO HS [facility] Last Admin: 12/13/17 21:21 Dose: 10 mg Donepezil HCl (Aricept) 5 mg PO DAILY [facility] Last Admin: 12/14/17 08:15 Dose: 5 mg Lorazepam (Ativan) 0.5 mg PO HS PRN PRN Reason: Agitation Lorazepam (Ativan) 0.5 mg PO Q6 PRN PRN Reason: Agitation Memantine (Namenda) 5 mg PO Q12 [facility] Last Admin: 12/14/17 08:16 Dose: 5 mg Ondansetron HCl (Zofran Inj) 4 mg IVP Q6 PRN PRN Reason: Nausea/Vomiting Pantoprazole Sodium (Protonix Inj) 40 mg IVP Q12 [facility] Last Admin: 12/14/17 08:16 Dose: 40 mg Risperidone (Risperdal Tab) 0.25 mg PO HS [facility] Last Admin: 12/13/17 21:21 Dose: 0.25 mg Results - Vital Signs Recent Vital Signs: Last Vital Signs Temp 98.2 F 12/14/17 12:22 Pulse 71 12/14/17 12:22 Resp 18 12/14/17 12:22 BP 111/61 12/14/17 12:22 Pulse Ox 97 12/14/17 12:22 - Labs Result Diagrams: 12/14/17 04:50 12/14/17 04:50 Labs: Laboratory Results - last 24 hr 12/14/17 12/14/17 12/14/17 04:50 04:50 05:40 WBC 7.2 RBC 3.20 L Hgb 9.1 L Hct 27.6 L MCV 86.3 MCH 28.6 MCHC 33.1 RDW 14.5 Plt Count 294 Sodium 143 Potassium 4.5 Chloride 107 Carbon Dioxide 28 Anion Gap 13 BUN 14 Creatinine 1.1 Est GFR ( Amer) 58 Est GFR (Non-Af Amer) 48 POC Glucose (mg/dL) 119 H Random Glucose 131 H Calcium 8.5 12/14/17 11:01 WBC RBC Hgb Hct MCV MCH MCHC RDW Plt Count Sodium Potassium Chloride Carbon Dioxide Anion Gap BUN Creatinine Est GFR ( Amer) Est GFR (Non-Af Amer) POC Glucose (mg/dL) 224 H Random Glucose Calcium
--- NOTE | 2017-12-14 14:21 | CP.PCM.PN ---
Subjective - Date & Time of Evaluation Date of Evaluation: 12/14/17 Time of Evaluation: 09:00 - Subjective Subjective: Patient without complaint. Minimal bowel movements. Objective - Vital Signs/Intake and Output Vital Signs (last 24 hours): Temp Pulse Resp BP Pulse Ox 98.2 F 71 18 111/61 97 12/14/17 12:22 12/14/17 12:22 12/14/17 12:22 12/14/17 12:22 12/14/17 12:22 - Medications Medications: Current Medications Alprazolam (Xanax) 0.25 mg PO DAILY PRN PRN Reason: Anxiety Stop: 12/18/17 18:51 Amlodipine Besylate (Norvasc) 10 mg PO DAILY [facility] Last Admin: 12/14/17 08:15 Dose: 10 mg Atorvastatin Calcium (Lipitor) 10 mg PO HS [facility] Last Admin: 12/13/17 21:21 Dose: 10 mg Calcium Carbonate (Oscal) 500 mg PO DAILY [facility] Last Admin: 12/14/17 08:16 Dose: 500 mg Donepezil HCl (Aricept) 10 mg PO HS [facility] Last Admin: 12/13/17 21:21 Dose: 10 mg Donepezil HCl (Aricept) 5 mg PO DAILY [facility] Last Admin: 12/14/17 08:15 Dose: 5 mg Lorazepam (Ativan) 0.5 mg PO HS PRN PRN Reason: Agitation Lorazepam (Ativan) 0.5 mg PO Q6 PRN PRN Reason: Agitation Memantine (Namenda) 5 mg PO Q12 [facility] Last Admin: 12/14/17 08:16 Dose: 5 mg Ondansetron HCl (Zofran Inj) 4 mg IVP Q6 PRN PRN Reason: Nausea/Vomiting Pantoprazole Sodium (Protonix Inj) 40 mg IVP Q12 [facility] Last Admin: 12/14/17 08:16 Dose: 40 mg Risperidone (Risperdal Tab) 0.25 mg PO HS [facility] Last Admin: 12/13/17 21:21 Dose: 0.25 mg - Labs Labs: 12/14/17 04:50 12/14/17 04:50 PT 9.9 Seconds (9.8-13.1) 12/11/17 19:06 INR 0.9 (0.9-1.2) 04/21/18 19:06 APTT 33.8 Seconds (25.6-37.1) 12/11/17 19:06 - Head Exam Head Exam: ATRAUMATIC - Eye Exam Eye Exam: Normal appearance - ENT Exam ENT Exam: Mucous Membranes Moist - Respiratory Exam Respiratory Exam: Clear to Ausculation Bilateral, NORMAL BREATHING PATTERN - Cardiovascular Exam Cardiovascular Exam: REGULAR RHYTHM - GI/Abdominal Exam GI & Abdominal Exam: Soft. absent: Tenderness Assessment and Plan (1) Melena Assessment & Plan: Upper endoscopy essentially negative. Clinically stable. Patient advised to no longer use ASA and we will follow clinically. Status: Acute
--- NOTE | 2017-12-14 15:30 | PQF GENQUE ---
Dr. Hercules, Etiology of melena if known? OR: Unable to determine 12/14 GI progress note: 1) Melena Assessment Plan: Upper endoscopy essentially negative. Clinically stable. Patient advised to no longer use ASA and we will follow clinically. Status: Acute This form is a permanent part of the medical record Clarification of your documentation is requested to better reflect the severity of illness and intensity of treatment of your patient. Indicators present [] Specify: [] [] Specify: [] [] Specify: [] [] Specify: [] Location in the medical record that reflects the above clinical findings: [] Treatment Provided: [] PHYSICIAN'S RESPONSE Based on your medical judgment of the clinical indicators outlined above please clarify the following: [] Practitioner response [] If unable to determine, please check the box, sign and date. Present On Admission (POA) Indicator: [] Present at the time of admission [] Not present at the time of admission [] Clinically Undetermined In responding to this query, please exercise your independent professional judgment. The fact that a question is asked does not imply that any particular answer is desired or expected. Thank you for your clarification on this documentation. If you have any questions please call. * Thank you, Nancy Baker RN ext. #[phone] MTDD
--- NOTE | 2017-12-14 15:37 | PQF GENQUE ---
Dr. Hercules, Please clarify the type of anemia: if known Blood loss anemia, acute Blood loss anemia, chronic Chronic anemia Deficiency anemia (please specify type) Due to/in/with antineoplastic chemotherapy Due to/in/with chronic kidney disease Due to/in/with kidney failure Due to/in/with neoplastic disease Iron deficiency anemia Macrocytic anemia Microcytic anemia Normocytic anemia Postoperative blood loss anemia Pernicious anemia Other anemia (please specify) Clinically unable to determine Unknown H/H: 7.4/22.5->10.0/29.6->9.4/27.5->9.1/27.6 12/14 GI progress note: 1) Melena Assessment Plan: Upper endoscopy essentially negative. Clinically stable. Patient advised to no longer use ASA and we will follow clinically. Status: Acute Transfused This form is a permanent part of the medical record Clarification of your documentation is requested to better reflect the severity of illness and intensity of treatment of your patient. Indicators present [] Specify: [] [] Specify: [] [] Specify: [] [] Specify: [] Location in the medical record that reflects the above clinical findings: [] Treatment Provided: [] PHYSICIAN'S RESPONSE Based on your medical judgment of the clinical indicators outlined above please clarify the following: [] Practitioner response [] If unable to determine, please check the box, sign and date. Present On Admission (POA) Indicator: [] Present at the time of admission [] Not present at the time of admission [] Clinically Undetermined In responding to this query, please exercise your independent professional judgment. The fact that a question is asked does not imply that any particular answer is desired or expected. Thank you for your clarification on this documentation. If you have any questions please call. * Thank you, Nancy Baker RN ext. #[phone] MTDD
--- NOTE | 2017-12-14 15:43 | PQF GENQUE ---
Dr. Hercules, 2 queries: Please provide a nutritional diagnosis, if known, related to the information below: versus Small Frame etc. The following clinical indicators are present in the medical record: BMI 17.2 5ft 4in 100lb 2. Please include the BMI in your next progress note OR: Disagree OR: Other explanation of clinical finding 12/14 Psych consult: 77 yo female w/ Dementia without current behavioral disturbances 12/14 GI consult: 1) Melena Assessment Plan: Upper endoscopy essentially negative. Clinically stable. Patient advised to no longer use ASA and we will follow clinically. Status: Acut This form is a permanent part of the medical record Clarification of your documentation is requested to better reflect the severity of illness and intensity of treatment of your patient. Indicators present [] Specify: [] [] Specify: [] [] Specify: [] [] Specify: [] Location in the medical record that reflects the above clinical findings: [] Treatment Provided: [] PHYSICIAN'S RESPONSE Based on your medical judgment of the clinical indicators outlined above please clarify the following: [] Practitioner response [] If unable to determine, please check the box, sign and date. Present On Admission (POA) Indicator: [] Present at the time of admission [] Not present at the time of admission [] Clinically Undetermined In responding to this query, please exercise your independent professional judgment. The fact that a question is asked does not imply that any particular answer is desired or expected. Thank you for your clarification on this documentation. If you have any questions please call. * Thank you, Nancy Baker RN ext. #[phone] MTDD
[2017-12-15 05:51] LABS: HEMOGLOBIN 9.3 g/dL (12.0-16.0); MEAN CORPUSCULAR HEMOGLOBIN 27.7 pg (27.0-31.0); MEAN CORPUSCULAR HGB CONC 31.8 g/dL (33.0-37.0); RBC 3.35 Mil/uL (3.80-5.20); RED CELL DISTRIBUTION WIDTH 14.5 % (11.5-14.5); WHITE BLOOD COUNT 5.9 K/uL (4.8-10.8)
[2017-12-15 06:03] LABS: CALCIUM 8.7 mg/dL (8.4-10.2)
[2017-12-16 08:25] VITALS: BP 109/62; PULSE 64; RESP 20; TEMP 98.2; O2SAT 96
--- NOTE | 2017-12-16 13:14 | CP.PCM.DIS ---
Provider - Provider Date of Admission: 12/11/17 18:49 Attending physician: Roxy Hercules DO Consults: GI : Dr Alarcon Psych: Dr Mejias Time Spent in preparation of Discharge (in minutes): 25 Diagnosis - Discharge Diagnosis (1) GI bleed Status: Acute (2) Anemia associated with acute blood loss Status: Acute (3) Dementia with behavioral disturbance Status: Chronic (4) HTN (hypertension) Status: Acute Hospital Course - Lab Results Lab Results: Most Recent Lab Values WBC 5.9 K/uL (4.8-10.8) 12/15/17 04:20 RBC 3.35 Mil/uL (3.80-5.20) L 12/15/17 04:20 Hgb 9.3 g/dL (12.0-16.0) L 12/15/17 04:20 Hct 29.1 % (34.0-47.0) L 12/15/17 04:20 MCV 87.0 fl (81.0-99.0) 12/15/17 04:20 MCH 27.7 pg (27.0-31.0) 12/15/17 04:20 MCHC 31.8 g/dL (33.0-37.0) L 12/15/17 04:20 RDW 14.5 % (11.5-14.5) 12/15/17 04:20 Plt Count 307 K/uL (130-400) 12/15/17 04:20 MPV 7.4 fl (7.2-11.7) 12/11/17 19:06 Neut % (Auto) 67.6 % (50.0-75.0) 12/11/17 19:06 Lymph % (Auto) 21.4 % (20.0-40.0) 12/11/17 19:06 [place] % (Auto) 9.0 % (0.0-10.0) 12/11/17 19:06 Eos % (Auto) 1.4 % (0.0-4.0) 12/11/17 19:06 Baso % (Auto) 0.6 % (0.0-2.0) 12/11/17 19:06 Neut # (Auto) 6.0 K/uL (1.8-7.0) 12/11/17 19:06 Lymph # (Auto) 1.9 K/uL (1.0-4.3) 12/11/17 19:06 [place] # (Auto) 0.8 K/uL (0.0-0.8) 12/11/17 19:06 Eos # (Auto) 0.1 K/uL (0.0-0.7) 12/11/17 19:06 Baso # (Auto) 0.1 K/uL (0.0-0.2) 12/11/17 19:06 PT 9.9 Seconds (9.8-13.1) 12/11/17 19:06 INR 0.9 (0.9-1.2) 12/11/17 19:06 APTT 33.8 Seconds (25.6-37.1) 12/11/17 19:06 Sodium 144 mmol/l (132-148) 12/15/17 04:20 Potassium 3.9 MMOL/L (3.6-5.0) 12/15/17 04:20 Chloride 107 mmol/L (98-107) 12/15/17 04:20 Carbon Dioxide 26 mmol/L (22-30) 12/15/17 04:20 Anion Gap 15 (10-20) 12/15/17 04:20 BUN 13 mg/dl (7-17) 12/15/17 04:20 Creatinine 1.1 mg/dl (0.7-1.2) 12/15/17 04:20 Est GFR ( Amer) 58 12/15/17 04:20 Est GFR (Non-Af Amer) 48 12/15/17 04:20 POC Glucose (mg/dL) 130 mg/dL (65-110) H 12/16/17 11:24 Random Glucose 96 mg/dL (65-105) 12/15/17 04:20 Calcium 8.7 mg/dL (8.4-10.2) 12/15/17 04:20 Total Bilirubin 0.4 mg/dl (0.2-1.3) 12/11/17 19:06 AST 25 U/L (14-36) 12/11/17 19:06 ALT 36 U/L (9-52) 12/11/17 19:06 Alkaline Phosphatase 105 U/L (38-126) 12/11/17 19:06 Total Protein 7.4 G/DL (6.3-8.2) 12/11/17 19:06 Albumin 3.9 g/dL (3.5-5.0) 12/11/17 19:06 Globulin 3.5 gm/dL (2.2-3.9) 12/11/17 19:06 Albumin/Globulin Ratio 1.1 (1.0-2.1) 12/11/17 19:06 Urine Color Yellow (YELLOW) 12/12/17 22:40 Urine Clarity Clear (Clear) 12/12/17 22:40 Urine pH 7.0 (5.0-8.0) 12/12/17 22:40 Ur Specific [place] 1.011 (1.003-1.030) 12/12/17 22:40 Urine Protein Negative mg/dL (NEGATIVE) 12/12/17 22:40 Urine Glucose (UA) Neg mg/dL (Normal) 12/12/17 22:40 Urine Ketones Trace mg/dL (NEGATIVE) 12/12/17 22:40 Urine Blood Negative (NEGATIVE) 12/12/17 22:40 Urine Nitrate Negative (NEGATIVE) 12/12/17 22:40 Urine Bilirubin Negative (NEGATIVE) 12/12/17 22:40 Urine Urobilinogen 0.2-1.0 mg/dL (0.2-1.0) 12/12/17 22:40 Ur Leukocyte Esterase Neg Huang/uL (Negative) 12/12/17 22:40 Urine RBC (Auto) 3 /hpf (0-3) 12/12/17 22:40 Urine Microscopic WBC < 1 /hpf (0-5) 12/12/17 22:40 Ur Squamous Epith Cells < 1 /hpf (0-5) 12/12/17 22:40 Stool Occult Blood Positive (NEGATIVE) H 12/14/17 10:27 Blood Type B POSITIVE 12/11/17 19:06 Antibody Screen Negative 12/11/17 19:06 Crossmatch See Detail 12/11/17 19:06 BBK History Checked Patient has bt 12/11/17 19:06 - Hospital Course Hospital Course: 77 year old female PMH dementia, HLD, DM2, HTN, osteoporosis, was admitted to [facility] 2/2 confusion/chronic dementia, was found to have melena, heme positive stools, drop in Hgb to 7.1. She was admitted to Telemetry unit for close monitoring, transfused 1 unit PRBC, Gastroenterology consulted with Dr. Alarcon, and started on Protonix 40 mg IV Q12. EGD : negative 1. Acute blood Loss Anemia ( on Chronic Anemia ) sec to Upper GI Bleed , etiology undetermined , possible sec to Gastritis was found to have melena, heme positive stools, drop in hematocrit 35.5 to 21.9. improved after one unit PRBC, Hgb now 9.3 Advanced diet to Consistent CHO Gastroenterology consulted: Dr. Alarcon, no acute bleeding on EGD Protonix 40 mg IV Q12 started - changed to PO 2. Alzheimer's Dementia with Behavioral Disturbance Ativan and Xanax PRN as was ordered in geropsych cont Namenda, Aricept, Risperdal Psych consulted , discussed case with Dr Mejias - no need for Inpatient Psych , recommended support worker Placement vs 24 hour care , pt not capable of making medical decisions, has POA - her sister- Pt will be d/c to an Assisted Living Center 3. DM type II, diet controlled accuchecks ISS low no meds 4. HTN cont Norvasc 5. Hyperlipidemia cont Lipitor 6. Small Body Frame , BMI 17.2 DVT proph SCD for now due to GIB Discharge Exam - Head Exam Head Exam: ATRAUMATIC, NORMAL INSPECTION, NORMOCEPHALIC - Eye Exam Eye Exam: EOMI, Normal appearance, PERRL Pupil Exam: NORMAL ACCOMODATION - ENT Exam ENT Exam: Mucous Membranes Moist, Normal External Ear Exam - Neck Exam Neck exam: Full Rom - Respiratory Exam Respiratory Exam: NORMAL BREATHING PATTERN. absent: Respiratory Distress - Cardiovascular Exam Cardiovascular Exam: REGULAR RHYTHM, +S1, +S2 - GI/Abdominal Exam GI & Abdominal Exam: Normal Bowel Sounds, Soft. absent: Tenderness - Extremities Exam Extremities exam: full ROM, normal capillary refill, normal inspection, pedal pulses present - Back Exam Back exam: FULL ROM. absent: CVA tenderness (L), CVA tenderness (R) - Neurological Exam Neurological exam: Alert, CN II-XII Intact, Normal Gait, Reflexes Normal Additional comments: oriented to person and place - Psychiatric Exam Psychiatric exam: Normal Affect, Normal Mood - Skin Skin Exam: Dry, Normal Color, Warm Discharge Plan - Discharge Medications Prescriptions: amLODIPine [Norvasc] 10 mg PO DAILY #30 tab Atorvastatin [Lipitor] 10 mg PO HS #30 tab Calcium Carbonate [Oscal] 500 mg PO DAILY #30 tab Donepezil [Aricept] 10 mg PO HS #30 tab Donepezil HCl [Aricept] 5 mg PO DAILY #30 tablet LORazepam [Ativan] 0.5 mg PO HS PRN #15 tab PRN Reason: Agitation Memantine [Namenda] 5 mg PO Q12 #60 tab Multivit,Calc,Mins/Iron/Folic [Therapeutic-M Tablet] 1 tab PO DAILY #30 tablet Pantoprazole Sodium [Protonix] 40 mg PO DAILY #30 tablet. Risperidone [Risperdal] 0.25 mg PO HS #30 tablet - Follow Up Plan Condition: GOOD Disposition: OTHER INSTITUTION Instructions: Bloody Stools, Adult (DC), Normocytic Normochromic Anemia (DC) Additional Instructions: d/c to Assisted Living Center ff up with PMD in 1-2 wks
== END 2017-12-16 14:30 | DRG 378 ==
LOC: H.ER 18:04 → H.ERHOLD 18:49 → H.TEL 21:47 → H.MEDSURG1 12-15 21:00
PROVIDERS: ADMIT Student in an Organized Health Care Education/Training Program; ATTEND Student in an Organized Health Care Education/Training Program
PROC: 30233N1 Transfusion of Nonautologous Red Blood Cells into Peripheral Vein, Percutaneous Approach (ICD-10-PCS; 2017-12-11)
PROC: 0DB68ZX Excision of Stomach, Via Natural or Artificial Opening Endoscopic, Diagnostic (ICD-10-PCS; principal; 2017-12-13 11:00)
DX: K29.71 Gastritis, unspecified, with bleeding (principal); D62 Acute posthemorrhagic anemia; Z68.1 Body mass index [BMI] 19.9 or less, adult; E78.5 Hyperlipidemia, unspecified; M81.0 Age-related osteoporosis without current pathological fracture; K44.9 Diaphragmatic hernia without obstruction or gangrene; G30.9 Alzheimer's disease, unspecified; K31.9 Disease of stomach and duodenum, unspecified; R62.52 Short stature (child); E11.9 Type 2 diabetes mellitus without complications; I10 Essential (primary) hypertension; F02.80 Dementia in other diseases classified elsewhere, unspecified severity, without behavioral disturbance, psychotic disturbance, mood disturbance, and anxiety